=== PATIENT | female | born 1955 | race Caucasian/White ===

== ENCOUNTER → 2017-01-24 | Outpatient (CLI) | payer OTHER ==
--- NOTE | 2017-01-25 14:50 | MM ---
Reason for exam: screening (asymptomatic). Last mammogram was performed 5 months ago. History: Patient is postmenopausal. Benign excisional biopsy of the left breast, May 02, 1998. Reductions of both breasts, 1991. 2 core biopsies of the left breast. Excisional biopsy of the right breast. Took estrogen for 22 years beginning at age 34. Physical Findings: Nurse did not find any significant physical abnormalities on exam. MG 3D Screening Mammo W/Cad Bilateral CC and MLO view(s) were taken. XCCL view(s) were taken of the left breast. Prior study comparison: August 13, 2016, left breast MG 3d diag mammo w/cad LT. January 23, 2016, bilateral MG 3d screening mammo w/cad. There are scattered fibroglandular densities. Benign calcifications. There is chronic nodularity in the left breast, stable. No significant changes when compared with prior studies. ASSESSMENT: Benign, BI-RAD 2 RECOMMENDATION: Routine screening mammogram of both breasts in 1 year.
== END | disposition home or self-care (01) ==
LOC: RADMAMWWP 09:52
PROVIDERS: ATTEND Family Medicine
DX: Z12.31 Encounter for screening mammogram for malignant neoplasm of breast (principal)
CPT/HCPCS: 77063; G0202

== ENCOUNTER 2017-12-22 19:39 | Emergency (ER) | payer OTHER ==
[2017-12-22] MEDS ORDERED: PROPARACAINE 0.5% OPHTH DROPS 15 ML BTL RIGHT EYE STA (20:35)
[2017-12-22] MEDS ORDERED: TOBRAMYCIN 0.3% OPHTH DROPS 5 ML BTL RIGHT EYE STA (21:07)
--- NOTE | 2017-12-22 21:09 | ED ---
Eye Problem HPI - General Chief complaint: Eye Problems Stated complaint: eye pain Time Seen by Provider: 12/22/17 20:30 Source: patient, RN notes reviewed Mode of arrival: ambulatory Limitations: no limitations - History of Present Illness Initial comments: This a 62-year-old female presents emergency Department chief complaint of right eye irritation. Patient states it started a few hours ago after rubbing her eye. She felt that something into her eye and she states that she rubbed it. Patient states that she has no blurred vision. She states she feels a burning sensation to the lateral portion of her right eye. Patient states she does wear glasses and states that she has right straight regular. She's had no prior surgeries. Her tetanus is up-to-date. Patient denies any drainage. - Related Data Previous Rx's Medication Instructions Recorded Tobramycin [Tobrex 0.3% Ophth Soln] 1 drop RIGHT EYE Q4HR #5 ml 12/22/17 Allergies Allergy/AdvReac Type Severity Reaction Status Date / Time acetaminophen [From Percocet] Allergy Unknown Verified 12/22/17 19:55 codeine Allergy Unknown Verified 12/22/17 19:55 egg Allergy Unknown Verified 12/22/17 19:55 milk Allergy Unknown Verified 12/22/17 19:55 oxycodone [From Percocet] Allergy Unknown Verified 12/22/17 19:55 peanut Allergy Unknown Verified 12/22/17 19:55 soy Allergy Unknown Verified 12/22/17 19:55 Review of Systems ROS Statement: Those systems with pertinent positive or pertinent negative responses have been documented in the HPI. ROS Other: All systems not noted in ROS Statement are negative. Past Medical History Past Medical History: Hypertension, Renal Disease, Thyroid Disorder History of Any Multi-Drug Resistant Organisms: None Reported Past Surgical History: Hysterectomy, Joint Replacement, Orthopedic Surgery, Tonsillectomy Past Psychological History: No Psychological Hx Reported Smoking Status: Never smoker Past Alcohol Use History: Occasional Past Drug Use History: None Reported General Exam Limitations: no limitations General appearance: alert, in no apparent distress Head exam: Present: atraumatic, normocephalic, normal inspection Eye exam: Present: PERRL, EOMI, conjunctival injection (Mild right lateral), other (There is a small chemotic area noted in the 9 o'clock position on the eye , pressure of the right eye with Doc-Pen was 16). Absent: normal appearance, scleral icterus, periorbital swelling Pupils: Present: normal accommodation, other (Wood's lamp and diabetes evaluate the right eye there is a small area of uptake in this scleral there is no corneal abrasion patient did have some relief with proparacaine) ENT exam: Present: normal exam, normal oropharynx, mucous membranes moist, TM's normal bilaterally, normal external ear exam Neck exam: Present: normal inspection. Absent: tenderness, meningismus, lymphadenopathy Respiratory exam: Present: normal lung sounds bilaterally. Absent: respiratory distress, wheezes, rales, rhonchi, stridor Course Vital Signs 12/22/17 12/22/17 19:50 21:25 Temperature 98.7 F 97.8 F Pulse Rate 90 84 Respiratory 18 17 Rate Blood Pressure 134/70 170/82 O2 Sat by Pulse 99 98 Oximetry Medical Decision Making - Medical Decision Making 62-year-old female presents emergency department for right eye irritation. Patient has an abrasion to the sclera. Patient has slight chemotic area. There is no foreign body noted. Patient will be given Tobrex eyedrops this time. Visual acuity is equal. Patient will follow-up with podiatric medicine professor tomorrow return for any worsening symptoms. Disposition Clinical Impression: Chemosis of right conjunctiva, Conjunctival abrasion Disposition: HOME SELF-CARE Condition: Stable Instructions: Conjunctivitis (ED) Additional Instructions: Please return to the Emergency Department if symptoms worsen or any other concerns. Prescriptions: Tobramycin [Tobrex 0.3% Ophth Soln] 1 drop RIGHT EYE Q4HR #5 ml Referrals: Raúl Persaud DO [Primary Care Provider] - 1-2 days Liliane Hodgson MD [STAFF PHYSICIAN] - 1-2 days Time of Disposition: 21:08
[2017-12-22 21:26] VITALS: BP 170/82; PULSE 84; RESP 17; TEMP 97.8
== END 2017-12-22 21:34 | disposition home or self-care (01) ==
LOC: EC 19:39
DX: S05.01XA Injury of conjunctiva and corneal abrasion without foreign body, right eye, initial encounter (principal); H11.421 Conjunctival edema, right eye; Z88.5 Allergy status to narcotic agent; Z88.8 Allergy status to other drugs, medicaments and biological substances; Z91.010 Allergy to peanuts; Z91.011 Allergy to milk products; Z91.012 Allergy to eggs; Z91.018 Allergy to other foods; X58.XXXA Exposure to other specified factors, initial encounter
CPT/HCPCS: 99283

== ENCOUNTER → 2018-02-05 | Outpatient (CLI) | payer OTHER ==
--- NOTE | 2018-02-05 15:17 | MM ---
Reason for exam: screening (asymptomatic). Last mammogram was performed 1 year ago. History: Patient is postmenopausal. Benign excisional biopsy of the left breast, May 02, 1998. Reductions of both breasts, 1991. 2 core biopsies of the left breast. Excisional biopsy of the right breast. Took estrogen for 22 years beginning at age 34. Physical Findings: A clinical breast exam by your physician is recommended on an annual basis and results should be correlated with mammographic findings. MG 3D Screening Mammo W/Cad Bilateral CC and MLO view(s) were taken. Prior study comparison: January 24, 2017, bilateral MG 3d screening mammo w/cad. August 13, 2016, left breast MG 3d diag mammo w/cad LT. There are scattered fibroglandular densities. Stable benign calcifications. There is no discrete abnormality. No significant changes when compared with prior studies. ASSESSMENT: Benign, BI-RAD 2 RECOMMENDATION: Routine screening mammogram of both breasts in 1 year.
== END | disposition home or self-care (01) ==
LOC: RADMAMWWP 07:52
PROVIDERS: ATTEND Family Medicine
DX: Z12.31 Encounter for screening mammogram for malignant neoplasm of breast (principal)
CPT/HCPCS: 77063; 77067

== ENCOUNTER → 2019-03-25 | Outpatient (CLI) | payer OTHER ==
--- NOTE | 2019-03-27 14:48 | MM ---
Reason for exam: screening (asymptomatic). Last mammogram was performed 1 year and 2 months ago. History: Patient is postmenopausal. Benign excisional biopsy of the left breast, May 02, 1998. Reductions of both breasts, 1991. 2 core biopsies of the left breast. Excisional biopsy of the right breast. Took estrogen for 22 years beginning at age 34. Physical Findings: A clinical breast exam by your physician is recommended on an annual basis and results should be correlated with mammographic findings. MG 3D Screening Mammo W/Cad Bilateral CC and MLO view(s) were taken. Prior study comparison: February 05, 2018, bilateral MG 3d screening mammo w/cad. January 24, 2017, bilateral MG 3d screening mammo w/cad. No significant changes when compared with prior studies. ASSESSMENT: Benign, BI-RAD 2 RECOMMENDATION: Routine screening mammogram of both breasts in 1 year.
== END | disposition home or self-care (01) ==
LOC: RADMAMWWP 12:38
PROVIDERS: ATTEND Family Medicine
DX: Z12.31 Encounter for screening mammogram for malignant neoplasm of breast (principal)
CPT/HCPCS: 77063; 77067

== ENCOUNTER 2019-05-07 09:26 | Day surgery (SDC) | payer OTHER ==
[~2019-05-07 09:26] MED LIST: LACTATED RINGERS 1,000 ML IV SCH
[2019-05-07] MEDS ORDERED: LIDOCAINE 1% 20 ML VIAL (10MG/ML) FOR IV START INTRADERMA ONE (10:00)
[2019-05-07 10:11] VITALS: RESP 16; TEMP 97.5
[2019-05-07] MEDS ORDERED: LIDOCAINE 1% INJ 10MG/ML (20 ML MDV) ONE (10:42)
[2019-05-07] MEDS ORDERED: ETOMIDATE 2 MG/ML 10 ML VIAL ONE (10:42)
--- NOTE | 2019-05-07 10:57 | P.PCN ---
Date of Procedure: 05/07/19 Procedure(s) Performed: BRIEF HISTORY: Patient is a 63-year-old pleasant white female scheduled for an elective colonoscopy as a part of evaluation of prior history of colon polyps. Last colonoscopy was 5 years ago. PROCEDURE PERFORMED: Colonoscopy. PREOPERATIVE DIAGNOSIS: History of colon polyps. IV sedation per Anesthesia. PROCEDURE: After informed consent was obtained, the patient, was brought into the endoscopy unit. IV sedation was administered by Anesthesia under continuous monitoring. Digital rectal examination was normal. Initially the Olympus CF-160 flexible video colonoscope was then inserted in the rectum, gradually advanced into the cecum without any difficulty. Careful examination was performed as the scope was gradually being withdrawn. Ileocecal valve and the appendiceal orifice were visualized and appeared normal. Prep was excellent. Mucosa of the cecum, ascending colon, transverse colon, descending colon, sigmoid colon, and rectum appeared normal. Scattered sigmoid diverticulosis seen. Retroflexion was performed in the rectum and no lesions were seen. The patient tolerated the procedure well. IMPRESSION: Normal-appearing colon from rectum to cecum with no evidence of colorectal neoplasia Scattered sigmoidal diverticulosis. RECOMMENDATIONS: Findings of this examination were discussed with the patient as well as her family. She was advised to have a repeat surveillance colonoscopy in 5 years from now because of the prior history of colon polyps.
[2019-05-07 11:18] VITALS: BP 125/79; PULSE 65
== END 2019-05-07 11:32 | disposition home or self-care (01) ==
LOC: ORWHC2ENDO 09:26
PROVIDERS: ATTEND Internal Medicine Gastroenterology
DX: Z12.11 Encounter for screening for malignant neoplasm of colon (principal); Z86.010 Personal history of colon polyps; K57.30 Diverticulosis of large intestine without perforation or abscess without bleeding; E03.9 Hypothyroidism, unspecified; Z88.8 Allergy status to other drugs, medicaments and biological substances; I10 Essential (primary) hypertension; Z79.890 Hormone replacement therapy; Z79.899 Other long term (current) drug therapy
CPT/HCPCS: G0105; J2001

== ENCOUNTER 2019-11-20 12:59 | Emergency (ER) | payer OTHER ==
[2019-11-20 13:13] VITALS: TEMP 98.4
[2019-11-20 14:02] LABS: Basophils # (A) 0.1 k/uL (0-0.2); Basophils % (A) 1 %; Eosinophils # (A) 0.1 k/uL (0-0.7); Eosinophils % (A) 2 %; HCT 39.3 % (34.0-46.0); HGB 12.9 gm/dL (11.4-16.0); Lymphocytes # (A) 0.7 k/uL (1.0-4.8); Lymphocytes % (A) 15 %; MCH 28.9 pg (25.0-35.0); MCHC 32.9 g/dL (31.0-37.0); MCV 87.8 fL (80.0-100.0); Mean Platelet Volume 9.6; Monocytes # (A) 0.5 k/uL (0-1.0); Monocytes % (A) 10 %; Neutrophils # (A) 3.3 k/uL (1.3-7.7); Neutrophils % (A) 70 %; Platelet Count 193 k/uL (150-450); RBC 4.48 m/uL (3.80-5.40); RDW 12.7 % (11.5-15.5); WBC 4.7 k/uL (3.8-10.6)
[2019-11-20 14:13] LABS: INR 0.9 (<1.2); Partial Thromboplastin Time 24.2 sec (22.0-30.0); Prothrombin Time 9.6 sec (9.0-12.0)
--- NOTE | 2019-11-20 14:14 | ED ---
Neuro HPI - General Chief Complaint: Neuro Symptoms/Deficit Stated Complaint: poss TIA Source: patient Mode of arrival: ambulatory Limitations: no limitations - History of Present Illness Is the patient presenting with stroke symptoms?: Yes Initial Comments: The patient is a 64-year-old female with past medical history of hypertension presents emergency room with reported right arm and right leg weakness associated with right sided visual disturbance. Symptoms started last night around 7:00. She states that she saw bright flashes in her right eye. She ended up going to bed. When she woke this morning symptoms were still present therefore she went and saw her male impersonator. She had a full eye exam performed and they stated that everything was normal. They recommended that she go see her primary care doctor. She then went to urgent care and saw Dr. blanco this. They performed an EKG and found patient to our emergency room. She is currently admitting to right upper extremity paresthesias. Visual disturbance has resolved. She does admit to feeling mildly weak in the right upper extremity as well as the right lower extremity. Denies headache or neck pain. No speech difficulties or confusion. Denies any nausea or vomiting. No fevers or chills. Denies cough or hemoptysis. No chest pain or shortness breath. Denies history of CVA or TIA. There are no alleviating, precipitating or modifying factors - Related Data Home Medications: Home Medications Medication Instructions Recorded Confirmed Levothyroxine Sodium [Tirosint] 88 mcg PO QAM 05/05/19 05/07/19 Allergies/Adverse Reactions: Allergies Allergy/AdvReac Type Severity Reaction Status Date / Time acetaminophen [From Percocet] Allergy Nausea & Verified 11/20/19 13:13 Vomiting, HYPERTENSION codeine Allergy Hallucinati Verified 11/20/19 13:13 ons egg Allergy Anaphylaxis Verified 11/20/19 13:13 milk Allergy Dyspnea Verified 11/20/19 13:13 oxycodone [From Percocet] Allergy Nausea & Verified 11/20/19 13:13 Vomiting, HYPERTENSION peanut Allergy Rash/Hives Verified 11/20/19 13:13 soy Allergy Anaphylaxis Verified 11/20/19 13:13 Review of Systems ROS Statement: Those systems with pertinent positive or pertinent negative responses have been documented in the HPI. ROS Other: All systems not noted in ROS Statement are negative. General Exam Limitations: no limitations General appearance: alert, in no apparent distress Head exam: Present: atraumatic, normocephalic, normal inspection Eye exam: Present: normal appearance, PERRL, EOMI. Absent: scleral icterus, conjunctival injection, periorbital swelling ENT exam: Present: normal exam, mucous membranes moist Neck exam: Present: normal inspection. Absent: tenderness, meningismus, lymphadenopathy Respiratory exam: Present: normal lung sounds bilaterally. Absent: respiratory distress, wheezes, rales, rhonchi, stridor Cardiovascular Exam: Present: regular rate, normal rhythm, normal heart sounds. Absent: systolic murmur, diastolic murmur, rubs, gallop, clicks GI/Abdominal exam: Present: soft, normal bowel sounds. Absent: distended, tenderness, guarding, rebound, rigid Extremities exam: Present: normal inspection, full ROM, normal capillary refill. Absent: tenderness, pedal edema, joint swelling, calf tenderness Back exam: Present: normal inspection Neurological exam: Present: alert, oriented X3, CN II-XII intact, other (Finger to nose is symmetric bilaterally. The patient does have reported sensory deficit in the right upper right lower extremity, however it is still intact. NIH is 0. Face is symmetric, tongue is midline, speech is clear. Patient is ambulatory without ataxia) Psychiatric exam: Present: normal affect, normal mood Skin exam: Present: warm, dry, intact, normal color. Absent: rash Stroke MDM - Lab Data Result diagrams: 11/20/19 13:30 11/20/19 13:30 Lab Results 11/20/19 11/20/19 11/20/19 Range/Units 13:30 13:30 13:30 WBC 4.7 (3.8-10.6) k/uL RBC 4.48 (3.80-5.40) m/uL Hgb 12.9 (11.4-16.0) gm/dL Hct 39.3 (34.0-46.0) % MCV 87.8 (80.0-100.0) fL MCH 28.9 (25.0-35.0) pg MCHC 32.9 (31.0-37.0) g/dL RDW 12.7 (11.5-15.5) % Plt Count 193 (150-450) k/uL Neutrophils % 70 % Lymphocytes % 15 % Monocytes % 10 % Eosinophils % 2 % Basophils % 1 % Neutrophils # 3.3 (1.3-7.7) k/uL Lymphocytes # 0.7 L (1.0-4.8) k/uL Monocytes # 0.5 (0-1.0) k/uL Eosinophils # 0.1 (0-0.7) k/uL Basophils # 0.1 (0-0.2) k/uL PT 9.6 (9.0-12.0) sec INR 0.9 (<1.2) APTT 24.2 (22.0-30.0) sec Sodium 137 (137-145) mmol/L Potassium 4.7 (3.5-5.1) mmol/L Chloride 104 (98-107) mmol/L Carbon Dioxide 26 (22-30) mmol/L Anion Gap 7 mmol/L BUN 20 H (7-17) mg/dL Creatinine 1.12 H (0.52-1.04) mg/dL Est GFR (CKD-EPI)AfAm 60 (>60 ml/min/1.73 sqM) Est GFR (CKD-EPI)NonAf 52 (>60 ml/min/1.73 sqM) Glucose 92 (74-99) mg/dL Calcium 9.4 (8.4-10.2) mg/dL Total Bilirubin 0.6 (0.2-1.3) mg/dL AST 31 (14-36) U/L ALT 15 (4-34) U/L Alkaline Phosphatase 98 (38-126) U/L Troponin I (0.000-0.034) ng/mL Total Protein 7.1 (6.3-8.2) g/dL Albumin 4.3 (3.5-5.0) g/dL Urine Color Urine Appearance (Clear) Urine pH (5.0-8.0) Ur Specific [place] (1.001-1.035) Urine Protein (Negative) Urine Glucose (UA) (Negative) Urine Ketones (Negative) Urine Blood (Negative) Urine Nitrite (Negative) Urine Bilirubin (Negative) Urine Urobilinogen (<2.0) mg/dL Ur Leukocyte Esterase (Negative) 11/20/19 11/20/19 Range/Units 13:30 14:46 WBC (3.8-10.6) k/uL RBC (3.80-5.40) m/uL Hgb (11.4-16.0) gm/dL Hct (34.0-46.0) % MCV (80.0-100.0) fL MCH (25.0-35.0) pg MCHC (31.0-37.0) g/dL RDW (11.5-15.5) % Plt Count (150-450) k/uL Neutrophils % % Lymphocytes % % Monocytes % % Eosinophils % % Basophils % % Neutrophils # (1.3-7.7) k/uL Lymphocytes # (1.0-4.8) k/uL Monocytes # (0-1.0) k/uL Eosinophils # (0-0.7) k/uL Basophils # (0-0.2) k/uL PT (9.0-12.0) sec INR (<1.2) APTT (22.0-30.0) sec Sodium (137-145) mmol/L Potassium (3.5-5.1) mmol/L Chloride (98-107) mmol/L Carbon Dioxide (22-30) mmol/L Anion Gap mmol/L BUN (7-17) mg/dL Creatinine (0.52-1.04) mg/dL Est GFR (CKD-EPI)AfAm (>60 ml/min/1.73 sqM) Est GFR (CKD-EPI)NonAf (>60 ml/min/1.73 sqM) Glucose (74-99) mg/dL Calcium (8.4-10.2) mg/dL Total Bilirubin (0.2-1.3) mg/dL AST (14-36) U/L ALT (4-34) U/L Alkaline Phosphatase (38-126) U/L Troponin I <0.012 (0.000-0.034) ng/mL Total Protein (6.3-8.2) g/dL Albumin (3.5-5.0) g/dL Urine Color Light Yellow Urine Appearance Clear (Clear) Urine pH 7.0 (5.0-8.0) Ur Specific [place] 1.007 (1.001-1.035) Urine Protein Negative (Negative) Urine Glucose (UA) Negative (Negative) Urine Ketones Negative (Negative) Urine Blood Negative (Negative) Urine Nitrite Negative (Negative) Urine Bilirubin Negative (Negative) Urine Urobilinogen <2.0 (<2.0) mg/dL Ur Leukocyte Esterase Negative (Negative) - Medical Decision Making Upon arrival the patient was placed in room 6. A thorough history and physical exam was performed. NIH stroke scale is performed and the patient has a score of 0. Laboratory studies were conducted and the patient was sent for a CT of her brain. I do receive results of the laboratory studies before the exam is performed. Kidney function is normal therefore I do that on a CT angios the head. Patient was given a liter bolus of normal saline. Laboratory studies are reviewed and are unremarkable. Urinalysis is negative. CT of the brain and CT angiography of the brain demonstrates no flow limiting stenosis of the bilateral carotid bifurcations. Normal [place] of [place]. I discussed results with the patient. NIH is performed again and continues to be negative. I discussed results with the patient. I did recommend hospital admission for neurology evaluation. Neurology is not available at her facility and therefore did primitivo mmend transfer with neurology capabilities. The patient did agree to [facility]. I discussed the case with Dr. López, the neurologist, who accepted transfer. I then talked to the ED and the accepting ED doctor is Dr. Brown. Patient remained in stable condition awaiting transfer 11/20/19 14:14 EKG demonstrates a normal sinus rhythm with a ventricular rate of 67. OK interval 104. QRS 84. QTC of 390. No acute ST segment elevations or depressions concerning for ischemic changes Past Medical History Past Medical History: Hypertension, Renal Disease, Thyroid Disorder History of Any Multi-Drug Resistant Organisms: None Reported Past Surgical History: Hysterectomy, Orthopedic Surgery, Tonsillectomy Additional Past Surgical History / Comment(s): RIGHT KNEE TOTAL. ROTATOR CUFF (BILATERAL). Past Anesthesia/Blood Transfusion Reactions: Previous Problems w/ Anesthesia Additional Past Anesthesia/Blood Transfusion Reaction / Comment(s): SEVERE ALLERGIES. CAN'T TAKE MEDS WITH EGG BASE (HAS HAD REACTION PREVIOUS SURGERIES. PATIENT STATES SHE CAN TAKE VERSED. Past Psychological History: ADD/ADHD Smoking Status: Never smoker Past Alcohol Use History: Occasional Past Drug Use History: None Reported Course Vital Signs 11/20/19 11/20/19 11/20/19 13:10 13:28 13:33 Temperature 98.4 F Pulse Rate 80 78 69 Respiratory 20 18 16 Rate Blood Pressure 157/81 120/81 123/43 O2 Sat by Pulse 100 99 100 Oximetry Disposition Clinical Impression: Paresthesia Disposition: OTHER INSTITUTION NOT DEFINED Condition: Stable Is patient prescribed a controlled substance at d/c from ED?: No Referrals: Raúl Persaud DO [Primary Care Provider] - 1-2 days Decision Time: 17:23 - Out of Hospital Transfer - Req. Specs Out of Hospital Transfer - Requested Specifics: Other Emergency Center ([facility])
[2019-11-20 14:17] LABS: Albumin 4.3 g/dL (3.5-5.0); Calcium 9.4 mg/dL (8.4-10.2); Potassium 4.7 mmol/L (3.5-5.1); Total Bilirubin 0.6 mg/dL (0.2-1.3); Total Protein 7.1 g/dL (6.3-8.2)
[2019-11-20] MEDS ORDERED: SODIUM CHLORIDE 0.9% 1,000 ML IV ONE (14:22)
--- NOTE | 2019-11-20 14:30 | XR ---
EXAMINATION TYPE: XR chest 2V DATE OF EXAM: 11/20/2019 COMPARISON: 01/03/1911 HISTORY: Altered mental status TECHNIQUE: Frontal and lateral views of the chest are obtained. FINDINGS: There is no focal air space opacity, pleural effusion, or pneumothorax seen. The cardiac silhouette size is within normal limits. The osseous structures are intact. IMPRESSION: No acute cardiopulmonary process.
--- NOTE | 2019-11-20 14:57 | CT ---
EXAMINATION TYPE: CT brain wo con DATE OF EXAM: 11/20/2019 COMPARISON: None INDICATION: Neuro deficit acute stroke right arm numbness and right eye visual disturbance DLP: 1073.8 mGycm, Automated exposure control for dose reduction was used. CONTRAST: None CT of the brain is performed utilizing 3 mm thick sections through the posterior fossa and 3 mm thick sections through the remaining calvarium. Study is performed within 24 hours of arrival to the hosp ital. No abnormal hyperdensity is present to suggest an acute intracranial hemorrhage. No mass lesion is evident. No acute infarcts are evident. Ventricles and sulci are appropriate for the patient age. Paranasal sinuses and mastoid air cells within the [id number]-[id number] are clear. IMPRESSIONS: 1. Normal CT Brain
[2019-11-20 15:08] LABS: Appearance,Urine Clear (Clear); Bilirubin,Urine Negative (Negative); Blood,Urine Negative (Negative); Color,Urine Light Yellow; Glucose,Urine (UA) Negative (Negative); Ketones,Urine Negative (Negative); Leukocyte Esterase,Urine Negative (Negative); Nitrite,Urine Negative (Negative); Protein,Urine Negative (Negative); Specific Gravity,Urine 1.007 (1.001-1.035); Urobilinogen,Urine <2.0 mg/dL (<2.0)
--- NOTE | 2019-11-20 15:47 | CT ---
EXAMINATION TYPE: CT angio head neck DATE OF EXAM: 11/20/2019 HISTORY: Right arm numbness and right eye visual disturbance. COMPARISON: None CT DLP: 419.7 mGycm. Automated Exposure Control for Dose Reduction was Utilized. TECHNIQUE: CTA scan of the neck is performed with IV Contrast, patient injected with 65 mL of Isovue 370, axial images are obtained, coronal and sagittal reformatted images are reviewed. Three-D recons tructed images are created on an independent workstation and reviewed. Source images are reviewed. FINDINGS: Carotid/Vascular Structures: There is a three-vessel arch. Carotid bifurcations are normal without si gnificant stenosis. Vertebral arteries are codominant. Cervical of [place]: Vertebral basilar system appears normal. Posterior cerebral vasculature is unrema rkable. Internal carotid arteries bifurcate normally into A1 and M1 segments. A2 segments are normal. The anterior communicating artery is patent. Communicating arteries appear absent. Other: Soft tissue neck appears normal. Subglottic airway is normal. Portion of the thyroid visualize d is normal. Lung apices within the [id number]-[id number]-sint are clear. IMPRESSION: 1. No flow-limiting stenosis bilateral carotid bifurcations. 2. Normal [place] of [place]
[2019-11-20 18:32] VITALS: RESP 18
[2019-11-20 18:34] VITALS: BP 123/74; PULSE 18
== END 2019-11-20 19:25 | disposition short-term general hospital (02) ==
LOC: EC 12:59
DX: R20.2 Paresthesia of skin (principal); G81.91 Hemiplegia, unspecified affecting right dominant side; E07.9 Disorder of thyroid, unspecified; Z88.5 Allergy status to narcotic agent; Z88.6 Allergy status to analgesic agent; Z91.010 Allergy to peanuts; Z91.011 Allergy to milk products; Z91.012 Allergy to eggs; Z91.018 Allergy to other foods; Z79.890 Hormone replacement therapy; Z96.651 Presence of right artificial knee joint; Z98.890 Other specified postprocedural states
CPT/HCPCS: 99285; 96360; 96361 ×3; 36415; 93005; 80053; 84484; 85025; 85610; 85730; 81003; 71046; 70496; 70450; 70498; Q9967

== ENCOUNTER → 2020-03-31 | Outpatient (CLI) | payer OTHER ==
--- NOTE | 2020-04-01 10:19 | MM ---
Reason for exam: screening (asymptomatic). Last mammogram was performed 1 year ago. History: Patient is postmenopausal. Benign excisional biopsy of the left breast, May 02, 1998. Reductions of both breasts, 1991. 2 core biopsies of the left breast. Excisional biopsy of the right breast. Took estrogen for 22 years beginning at age 34. Physical Findings: A clinical breast exam by your physician is recommended on an annual basis and results should be correlated with mammographic findings. MG 3D Screening Mammo W/Cad Bilateral CC and MLO view(s) were taken. Prior study comparison: March 25, 2019, bilateral MG 3d screening mammo w/cad. February 05, 2018, bilateral MG 3d screening mammo w/cad. There are scattered fibroglandular densities. Stable benign calcifications. There is no discrete abnormality. No significant changes when compared with prior studies. ASSESSMENT: Benign, BI-RAD 2 RECOMMENDATION: Routine screening mammogram of both breasts in 1 year.
== END | disposition home or self-care (01) ==
LOC: RADMAMWWP 09:16
PROVIDERS: ATTEND Family Medicine
DX: Z12.31 Encounter for screening mammogram for malignant neoplasm of breast (principal)
CPT/HCPCS: 77063; 77067

== ENCOUNTER → 2021-04-03 | Outpatient (CLI) | payer MEDICARE ==
--- NOTE | 2021-04-03 15:00 | BD ---
EXAMINATION TYPE: Axial Bone Density DATE OF EXAM: 04/03/2021 COMPARISON: 01.23.2016 CLINICAL HISTORY: 65 YR OLD FEMALE.....ICD-10 CODE: M85.80 DISORDER OF BONE DENSITY Height: 62.4 Weight: 156 FRAX RISK QUESTIONS: History of Fracture in Adulthood: YES Secondary Osteoporosis: YES 3. Menopause before 45: YES RISK FACTORS HISTORY OF: Hip Fracture HAIR LINE FX RT HIP, AT AGE 44 YRS Diet low in dairy products/other sources of calcium: MILK ALLERGY Postmenopausal woman: YES, AT AGE 34 YRS OLD TOTAL HYST Take estrogen and/or progesterone medications: YES, AND STILL ON THEM FOR 31 YRS Hyperparathyroidism: NO Adrenal Insufficiency: NO MEDICATIONS: Thyroid Medications: YES, SYNTHROID, FOR ABOUT 40 YRS Additional Medications: BP MEDS, REFLUX MEDS, Additional History: RT TKR, HYPERTENSION, REFLUX, HX OF RT HIP FX, KIDNEY FAILURE, RENAL PROBLEMS, EXAM MEASUREMENTS: Bone mineral densitometry was performed using the [employer] System. Bone mineral density as measured about the Lumbar spine is: ----- L1-L4(G/cm2): 1.011 T Score Values are as follows: ----- L1: -2.2 ----- L2: -1.9 ----- L3: -1.9 ----- L4: -0.1 ----- L1-L4: -1.4 Bone mineral density has: Increased 2.5% since study of: 01.23.2016 Bone mineral density about the L hip (g/cm2): 0.898 T Score values are as follows: -----L Neck: -1.3 -----L Total: -0.9 Bone mineral density has: Decreased -4.7% since study of: 01.23.2016 FRAX%s: THERE IS A 7.5% CHANCE FOR A MAJOR OSTEOPOROTIC FX AND A 0.7% FOR HIP.....PROBABILITY FOR FX IN 10 YRS TIME IMPRESSION: Osteopenia NOTE: T-SCORE=SD OF THE YOUNG ADULT MEAN.
--- NOTE | 2021-04-05 08:13 | MM ---
Reason for exam: screening (asymptomatic). Last mammogram was performed 1 year ago. History: Patient is postmenopausal. Benign excisional biopsy of the left breast, May 02, 1998. Reductions of both breasts, 1991. 2 core biopsies of the left breast. Excisional biopsy of the right breast. Took estrogen for 22 years beginning at age 34. Physical Findings: A clinical breast exam by your physician is recommended on an annual basis and results should be correlated with mammographic findings. MG 3D Screening Mammo W/Cad Bilateral CC and MLO view(s) were taken. Prior study comparison: March 31, 2020, bilateral MG 3d screening mammo w/cad. March 25, 2019, bilateral MG 3d screening mammo w/cad. There are scattered fibroglandular densities. No significant changes when compared with prior studies. ASSESSMENT: Benign, BI-RAD 2 RECOMMENDATION: Routine screening mammogram of both breasts in 1 year.
== END | disposition home or self-care (01) ==
LOC: RADMAMWWP 09:47
PROVIDERS: ATTEND Family Medicine
DX: Z12.31 Encounter for screening mammogram for malignant neoplasm of breast (principal); Z78.0 Asymptomatic menopausal state; M85.80 Other specified disorders of bone density and structure, unspecified site
CPT/HCPCS: 77063; 77067; 77080

== ENCOUNTER → 2021-12-25 | Outpatient (CLI) | payer MEDICARE ==
[2021-12-25 13:06] LABS: Basophils # (A) 0.1 k/uL (0-0.2); Basophils % (A) 1 %; Eosinophils # (A) 0.1 k/uL (0-0.7); Eosinophils % (A) 1 %; HCT 42.8 % (34.0-46.0); HGB 13.5 gm/dL (11.4-16.0); Lymphocytes % (A) 12 %; MCH 29.1 pg (25.0-35.0); MCHC 31.6 g/dL (31.0-37.0); MCV 92.1 fL (80.0-100.0); Mean Platelet Volume 9.1; Monocytes # (A) 0.5 k/uL (0-1.0); Monocytes % (A) 6 %; Neutrophils # (A) 6.7 k/uL (1.3-7.7); Neutrophils % (A) 78 %; Platelet Count 211 k/uL (150-450); RBC 4.65 m/uL (3.80-5.40); RDW 12.6 % (11.5-15.5); WBC 8.5 k/uL (3.8-10.6)
[2021-12-25 13:21] LABS: ALT 17 U/L (4-34); AST 31 U/L (14-36); African American GFR (CKD) 59 (>60 ml/min/1.73 sqM); Albumin 4.3 g/dL (3.5-5.0); Albumin/Globulin Ratio 1.3; Alkaline Phosphatase 81 U/L (38-126); Anion Gap 9 mmol/L; Blood Urea Nitrogen 18 mg/dL (7-17); Calcium 9.5 mg/dL (8.4-10.2); Carbon Dioxide 25 mmol/L (22-30); Chloride 103 mmol/L (98-107); Globulin 3.3 g/dL; Glucose 97 mg/dL (74-99); Non-African American GFR(CKD) 51 (>60 ml/min/1.73 sqM); Potassium 4.7 mmol/L (3.5-5.1); Sodium 137 mmol/L (137-145); Total Protein 7.6 g/dL (6.3-8.2)
--- NOTE | 2021-12-25 15:27 | CT ---
EXAMINATION TYPE: CT abdomen pelvis w con DATE OF EXAM: 12/25/2021 COMPARISON: No previous CT scan is available for comparison HISTORY: LLQ pain CT DLP: 731.60 mGycm Automated exposure control for dose reduction was used. TECHNIQUE: Helical acquisition of images was performed from the lung bases through the pelvis. CONTRAST: Performed with Oral Contrast and with IV Contrast, patient injected with 80 ml mL of Isovue 300. FINDINGS: LUNG BASES: No significant abnormality is appreciated. LIVER/GB: No significant abnormality is appreciated. PANCREAS: No significant abnormality is seen. SPLEEN: No significant abnormality is seen. ADRENALS: No significant abnormality is seen. KIDNEYS: Right extrarenal pelvis with left parapelvic renal cysts. Unremarkable kidneys otherwise. No hydroureter or hydronephrosis. FREE AIR: No free air is visualized. RETROPERITONEAL ADENOPATHY: None visualized REPRODUCTIVE ORGANS: Previous hysterectomy. No gross adnexal mass. URINARY BLADDER: No significant abnormality is seen. PELVIC ADENOPATHY: None visualized. OSSEOUS STRUCTURES: Grade 1 anterolisthesis of L4 over L5. No aggressive bone lesion. BOWEL: Unremarkable stomach. Small duodenal diverticulum. Unremarkable small bowel. Colonic divertic ulosis with acute diverticulitis involving the junction of the descending colon and the sigmoid colon . No definite abscess formation or signs of perforation. Fecal loading of the remainder of the colon. Nonspecific wall thickening the proximal portion of the transverse colon, please correlate with colo noscopy results. Normal appendix. OTHER: Unremarkable abdominal aorta. No sizable ascites. IMPRESSION: Acute diverticulitis of the proximal sigmoid colon/distal descending colon as described above. No sig ns of perforation or abscess formation. Other incidental findings as detailed above.
== END | disposition home or self-care (01) ==
LOC: RADCTMAIN 12:38
PROVIDERS: ATTEND Physician Assistant
DX: K57.32 Diverticulitis of large intestine without perforation or abscess without bleeding (principal)
CPT/HCPCS: 80053; 85025; 74177; 36415; Q9967

== ENCOUNTER 2022-03-02 19:15 | Emergency (ER) | payer MEDICARE ==
[2022-03-02 19:20] VITALS: RESP 18; TEMP 97.1
[2022-03-02] MEDS ORDERED: MORPHINE SULFATE 2 MG/ML SYRINGE IVP STA (20:08)
[2022-03-02] MEDS ORDERED: ONDANSETRON 4 MG/2 ML VIAL IVP STA (20:08)
[2022-03-02] MEDS ORDERED: SODIUM CHLORIDE 0.9% 1,000 ML IV STA (20:08)
--- NOTE | 2022-03-02 20:48 | ED ---
Abdominal Pain HPI - General Chief Complaint: Abdominal Pain Stated Complaint: abd pain Time Seen by Provider: 03/02/22 20:02 Source: patient Mode of arrival: ambulatory Limitations: no limitations - History of Present Illness Initial Comments: Patient is a 66-year-old female presenting with chief complaint of abdominal pain. Patient states pain is mainly located in the lower quadrants. Is accompanied by diarrhea and nausea. Patient states that she was diagnosed with colitis in December and treated with antibiotics, she has had this pain on and off again, however today the pain has increased substantially. She took Tylenol at home with no relief. She admits to hematochezia the last 2 weeks. She denies any vomiting. Denies chest pain, shortness of breath, palpitations, weakness. Admits to some dysuria and chills without fever. Denies hematuria, urgency, frequency. - Related Data Home Medications Medication Instructions Recorded Confirmed Levothyroxine Sodium [Tirosint] 88 mcg PO QAM 05/05/19 05/07/19 Previous Rx's Medication Instructions Recorded Ciprofloxacin HCl [Cipro] 500 mg PO BID 10 Days #20 tab 03/02/22 metroNIDAZOLE [Flagyl] 500 mg PO TID 10 Days #30 tab 03/02/22 Allergies Allergy/AdvReac Type Severity Reaction Status Date / Time acetaminophen [From Percocet] Allergy Nausea & Verified 03/02/22 19:20 Vomiting, HYPERTENSION codeine Allergy Hallucinati Verified 03/02/22 19:20 ons egg Allergy Anaphylaxis Verified 03/02/22 19:20 milk Allergy Dyspnea Verified 03/02/22 19:20 oxycodone [From Percocet] Allergy Nausea & Verified 03/02/22 19:20 Vomiting, HYPERTENSION peanut Allergy Rash/Hives Verified 03/02/22 19:20 soy Allergy Anaphylaxis Verified 03/02/22 19:20 Review of Systems ROS Statement: Those systems with pertinent positive or pertinent negative responses have been documented in the HPI. ROS Other: All systems not noted in ROS Statement are negative. Past Medical History Past Medical History: Hypertension, Renal Disease, Thyroid Disorder Additional Past Medical History / Comment(s): diverticulitis History of Any Multi-Drug Resistant Organisms: None Reported Past Surgical History: Hysterectomy, Orthopedic Surgery, Tonsillectomy Additional Past Surgical History / Comment(s): RIGHT KNEE TOTAL. ROTATOR CUFF (BILATERAL). Past Anesthesia/Blood Transfusion Reactions: Previous Problems w/ Anesthesia Additional Past Anesthesia/Blood Transfusion Reaction / Comment(s): SEVERE ALLER GIES. CAN'T TAKE MEDS WITH EGG BASE (HAS HAD REACTION PREVIOUS SURGERIES. PATIENT STATES SHE CAN TAKE VERSED. Past Psychological History: ADD/ADHD Smoking Status: Never smoker Past Alcohol Use History: Occasional Past Drug Use History: None Reported General Exam Limitations: no limitations General appearance: alert, in no apparent distress Head exam: Present: atraumatic, normocephalic, normal inspection Eye exam: Present: normal appearance, EOMI. Absent: scleral icterus Neck exam: Present: normal inspection Respiratory exam: Present: normal lung sounds bilaterally. Absent: respiratory distress, wheezes, rales, rhonchi, stridor Cardiovascular Exam: Present: regular rate, normal rhythm, normal heart sounds. Absent: systolic murmur, diastolic murmur, rubs, gallop, clicks GI/Abdominal exam: Present: soft, normal bowel sounds. Absent: distended, tenderness, guarding, rebound, rigid Neurological exam: Present: alert, oriented X3, CN II-XII intact Psychiatric exam: Present: normal affect, normal mood Skin exam: Present: warm, dry, intact, normal color. Absent: rash Course Vital Signs 03/02/22 03/02/22 19:17 20:55 Temperature 97.1 F L Pulse Rate 77 63 Respiratory 18 18 Rate Blood Pressure 133/79 114/63 O2 Sat by Pulse 97 99 Oximetry Medical Decision Making - Medical Decision Making Patient is a 66-year-old female presenting with chief complaint of abdominal pain. This is accompanied by nausea, hematochezia, diarrhea. She has a history of colitis. On examination there is bilateral lower quadrant tenderness. There are hyperactive bowel sounds. Lab work shows no leukocytosis and hemoglobin is WNL. Creatinine and BUN has increased from her baseline values. Urine shows no signs of infection. CT shows persistent inflammation changes around the sigmoid colon which could be new episode of colitis or residual inflammation from initial episode. I discussed these findings with the patient. Through shared decision making I provided the patient with the options of receiving inpatient treatment or utilizing outpatient treatment with follow-up on Saturday for elevated creatinine and BUN. Patient opted for outpatient treatment with follow-up with her PCP. Patient treated with ciprofloxacin and metronidazole. She was given her first dose here in the ER. Instructed to follow-up with PCP on Saturday for symptomatic reassessment and creatinine and BUN rechecked. Report back to ER with any new or worsening symptoms. Answered all questions and discussed return parameters. Patient conveyed verbal understanding and agreed to the plan. I discussed this case with my attending Dr. Beaver - Lab Data Result diagrams: 03/02/22 20:47 03/02/22 20:47 Lab Results 03/02/22 03/02/22 03/02/22 Range/Units 20:47 20:47 20:47 WBC 8.3 (3.8-10.6) k/uL RBC 4.62 (3.80-5.40) m/uL Hgb 14.1 (11.4-16.0) gm/dL Hct 41.9 (34.0-46.0) % MCV 90.7 (80.0-100.0) fL MCH 30.5 (25.0-35.0) pg MCHC 33.7 (31.0-37.0) g/dL RDW 12.7 (11.5-15.5) % Plt Count 227 (150-450) k/uL MPV 9.4 Neutrophils % 80 % Lymphocytes % 9 % Monocytes % 6 % Eosinophils % 1 % Basophils % 1 % Neutrophils # 6.7 (1.3-7.7) k/uL Lymphocytes # 0.8 L (1.0-4.8) k/uL Monocytes # 0.5 (0-1.0) k/uL Eosinophils # 0.1 (0-0.7) k/uL Basophils # 0.1 (0-0.2) k/uL PT 10.0 (9.0-12.0) sec INR 0.9 (<1.2) APTT 23.8 (22.0-30.0) sec Sodium 133 L (137-145) mmol/L Potassium 5.0 (3.5-5.1) mmol/L Chloride 101 (98-107) mmol/L Carbon Dioxide 24 (22-30) mmol/L Anion Gap 8 mmol/L BUN 35 H (7-17) mg/dL Creatinine 1.85 H (0.52-1.04) mg/dL Est GFR (CKD-EPI)AfAm 32 (>60 ml/min/1.73 sqM) Est GFR (CKD-EPI)NonAf 28 (>60 ml/min/1.73 sqM) Glucose 106 H (74-99) mg/dL Plasma Lactic Acid Tarun (0.7-2.0) mmol/L Calcium 9.9 (8.4-10.2) mg/dL Total Bilirubin 1.0 (0.2-1.3) mg/dL AST 36 (14-36) U/L ALT 17 (4-34) U/L Alkaline Phosphatase 72 (38-126) U/L Total Protein 7.5 (6.3-8.2) g/dL Albumin 4.6 (3.5-5.0) g/dL Amylase 98 (30-110) U/L Lipase 191 (23-300) U/L Urine Color Urine Appearance (Clear) Urine pH (5.0-8.0) Ur Specific [place] (1.001-1.035) Urine Protein (Negative) Urine Glucose (UA) (Negative) Urine Ketones (Negative) Urine Blood (Negative) Urine Nitrite (Negative) Urine Bilirubin (Negative) Urine Urobilinogen (<2.0) mg/dL Ur Leukocyte Esterase (Negative) Urine WBC (0-5) /hpf Ur Squamous Epith Cells (0-4) /hpf Amorphous Sediment (None) /hpf Hyaline Casts (0-2) /lpf Urine Mucus (None) /hpf 03/02/22 03/02/22 Range/Units 20:47 21:20 WBC (3.8-10.6) k/uL RBC (3.80-5.40) m/uL Hgb (11.4-16.0) gm/dL Hct (34.0-46.0) % MCV (80.0-100.0) fL MCH (25.0-35.0) pg MCHC (31.0-37.0) g/dL RDW (11.5-15.5) % Plt Count (150-450) k/uL MPV Neutrophils % % Lymphocytes % % Monocytes % % Eosinophils % % Basophils % % Neutrophils # (1.3-7.7) k/uL Lymphocytes # (1.0-4.8) k/uL Monocytes # (0-1.0) k/uL Eosinophils # (0-0.7) k/uL Basophils # (0-0.2) k/uL PT (9.0-12.0) sec INR (<1.2) APTT (22.0-30.0) sec Sodium (137-145) mmol/L Potassium (3.5-5.1) mmol/L Chloride (98-107) mmol/L Carbon Dioxide (22-30) mmol/L Anion Gap mmol/L BUN (7-17) mg/dL Creatinine (0.52-1.04) mg/dL Est GFR (CKD-EPI)AfAm (>60 ml/min/1.73 sqM) Est GFR (CKD-EPI)NonAf (>60 ml/min/1.73 sqM) Glucose (74-99) mg/dL Plasma Lactic Acid Tarun 0.9 (0.7-2.0) mmol/L Calcium (8.4-10.2) mg/dL Total Bilirubin (0.2-1.3) mg/dL AST (14-36) U/L ALT (4-34) U/L Alkaline Phosphatase (38-126) U/L Total Protein (6.3-8.2) g/dL Albumin (3.5-5.0) g/dL Amylase (30-110) U/L Lipase (23-300) U/L Urine Color Yellow Urine Appearance Clear (Clear) Urine pH 5.5 (5.0-8.0) Ur Specific [place] 1.021 (1.001-1.035) Urine Protein Trace H (Negative) Urine Glucose (UA) Negative (Negative) Urine Ketones Negative (Negative) Urine Blood Negative (Negative) Urine Nitrite Negative (Negative) Urine Bilirubin Negative (Negative) Urine Urobilinogen <2.0 (<2.0) mg/dL Ur Leukocyte Esterase Small H (Negative) Urine WBC 5 (0-5) /hpf Ur Squamous Epith Cells 2 (0-4) /hpf Amorphous Sediment Rare H (None) /hpf Hyaline Casts 38 H (0-2) /lpf Urine Mucus Occasional H (None) /hpf Disposition Clinical Impression: Colitis Disposition: HOME SELF-CARE Condition: Good Instructions (If sedation given, give patient instructions): Colitis (ED) Additional Instructions: Follow-up with PCP on Saturday for symptom reevaluation and creatinine and BUN recheck. Report back to ER with any new or worsening symptoms. Prescriptions: Ciprofloxacin HCl [Cipro] 500 mg PO BID 10 Days #20 tab metroNIDAZOLE [Flagyl] 500 mg PO TID 10 Days #30 tab Is patient prescribed a controlled substance at d/c from ED?: No Referrals: Raúl Persaud DO [Primary Care Provider] - 03/05/22 Time of Disposition: 23:19
[2022-03-02 20:50] LABS: Basophils # (A) 0.1 k/uL (0-0.2); Basophils % (A) 1 %; Eosinophils # (A) 0.1 k/uL (0-0.7); Eosinophils % (A) 1 %; HCT 41.9 % (34.0-46.0); HGB 14.1 gm/dL (11.4-16.0); Lymphocytes # (A) 0.8 k/uL (1.0-4.8); Lymphocytes % (A) 9 %; MCH 30.5 pg (25.0-35.0); MCHC 33.7 g/dL (31.0-37.0); MCV 90.7 fL (80.0-100.0); Mean Platelet Volume 9.4; Monocytes # (A) 0.5 k/uL (0-1.0); Monocytes % (A) 6 %; Neutrophils # (A) 6.7 k/uL (1.3-7.7); Neutrophils % (A) 80 %; Platelet Count 227 k/uL (150-450); RBC 4.62 m/uL (3.80-5.40); RDW 12.7 % (11.5-15.5); WBC 8.3 k/uL (3.8-10.6)
[2022-03-02 20:59] LABS: INR 0.9 (<1.2); Partial Thromboplastin Time 23.8 sec (22.0-30.0)
[2022-03-02 21:00] LABS: Albumin 4.6 g/dL (3.5-5.0); Calcium 9.9 mg/dL (8.4-10.2); Total Protein 7.5 g/dL (6.3-8.2)
[2022-03-02 21:25] LABS: Amorphous Sediment,Urine Rare /hpf; Appearance,Urine Clear (Clear); Bilirubin,Urine Negative (Negative); Blood,Urine Negative (Negative); Color,Urine Yellow; Glucose,Urine (UA) Negative (Negative); Hyaline Casts,Urine 38 /lpf (0-2); Ketones,Urine Negative (Negative); Leukocyte Esterase,Urine Small (Negative); Mucus,Urine Occasional /hpf; Nitrite,Urine Negative (Negative); PH, Urine 5.5 (5.0-8.0); Protein,Urine Trace (Negative); Specific Gravity,Urine 1.021 (1.001-1.035); Squamous Epithelial Cell,Urine 2 /hpf (0-4); Urobilinogen,Urine <2.0 mg/dL (<2.0); WBC,Urine 5 /hpf (0-5)
--- NOTE | 2022-03-02 21:46 | CT ---
EXAMINATION TYPE: CT abdomen pelvis wo con CT DLP: 498.3 mGycm, Automated exposure control for dose reduction was used. DATE OF EXAM: 03/02/2022 9:23 PM COMPARISON: CT abdomen pelvis 12/25/2021 CLINICAL INDICATION:Female, 66 years old with history of Abdominal pain, right lower quadrant; Lower pelvic pain, right lower quadrant pain TECHNIQUE: Standard CT of the abdomen and pelvis following the administration of 100 cc of Isovue 3 00 IV contrast material. Coronal and sagittal reformats were performed. FINDINGS: LOWER CHEST: Unremarkable ABDOMEN LIVER: Unremarkable GALLBLADDER AND BILE DUCTS: Unremarkable. PANCREAS: Unremarkable. SPLEEN: Small splenule is present. ADRENAL GLANDS: Unremarkable. KIDNEYS AND URETERS: No evidence of hydronephrosis or renal calculus. The ureters are unremarkable. U nchanged left peripelvic cyst. PELVIS BLADDER: Unremarkable REPRODUCTIVE: Unremarkable. ABDOMEN & PELVIS STOMACH AND BOWEL: Appendix is normal. Mild inflammation changes around the sigmoid colon remain in t flora's exam. No evidence of bowel obstruction. PERITONEUM: No evidence of pneumoperitoneum or free fluid. VASCULATURE: No evidence of aortic aneurysm. MUSCULOSKELETAL: No acute osseous abnormalities.Grade 1 anterolisthesis of L4 over L5. No aggressive bone lesion. Multiple level disc bulging most pronounced in the lumbar spine. LYMPH NODES: No gross evidence for lymphadenopathy. SOFT TISSUE/ABDOMINAL WALL: Unremarkable IMPRESSION: 1. No evidence of acute right lower quadrant process to explain the patient's pain. Normal appendix. No right hydronephrosis or obstructive uropathy. 2. Persistent inflammation changes around the sigmoid colon which could be new episode of colitis or residual inflammation from 12/25/2021 colitis/diverticulitis.
[2022-03-02] MEDS ORDERED: HYDROmorphone 0.5 MG/0.5 ML SYRINGE IVP STA (22:09)
[2022-03-02] MEDS ORDERED: CIPROFLOXACIN HCL 500 MG TAB PO STA (23:18)
[2022-03-02] MEDS ORDERED: metroNIDAZOLE 500 MG TAB PO STA (23:18)
[2022-03-02 23:51] VITALS: BP 115/82; PULSE 84
== END 2022-03-02 23:49 | disposition home or self-care (01) ==
LOC: EC 19:15
DX: K52.9 Noninfective gastroenteritis and colitis, unspecified (principal); I10 Essential (primary) hypertension; E07.9 Disorder of thyroid, unspecified; Z88.5 Allergy status to narcotic agent; Z91.012 Allergy to eggs; Z91.011 Allergy to milk products; Z91.010 Allergy to peanuts; Z91.018 Allergy to other foods; Z88.6 Allergy status to analgesic agent; Z79.890 Hormone replacement therapy
CPT/HCPCS: 36415; 80053; 82150; 83605; 83690; 85025; 85610; 85730; 81001; 74176; 99284; 96374; 96375; 96361; J2405; J2270; J1170

== ENCOUNTER 2022-03-12 11:03 | Day surgery (SDC) | payer MEDICARE ==
[2022-03-08 10:52] VITALS: BMI 27.1
[~2022-03-12 11:03] MED LIST changes: -LACTATED RINGERS 1,000 ML IV SCH; +LIDOCAINE 1% (10MG/ML) FOR IV START INTRADERMA PRN
[2022-03-12] MEDS: LACTATED RINGERS 1,000 ML IV SCH ×2 (11:50→11:51)
[2022-03-12 11:54] VITALS: TEMP 97.2
[2022-03-12] MEDS ORDERED: ETOMIDATE 2 MG/ML 10 ML VIAL ONE (12:18)
--- NOTE | 2022-03-12 12:23 | P.GSHP ---
History of Present Illness H&P Date: 03/12/22 Chief Complaint: Diverticulitis This a 66-year-old female presents today for colonoscopy. Patient has history of diverticulitis. Past Medical History Past Medical History: Asthma, CVA/TIA, GERD/Reflux, Hyperlipidemia, Hypertension, Renal Disease, Thyroid Disorder Additional Past Medical History / Comment(s): diverticulitis, TIA 3 yrs ago-no residual effects, diarrhea and abdominal pain, COVID Sep 2021 History of Any Multi-Drug Resistant Organisms: None Reported Past Surgical History: Hysterectomy, Joint Replacement, Orthopedic Surgery, Tonsillectomy Additional Past Surgical History / Comment(s): rt knee replacement,. ROTATOR CUFF (BILATERAL). Past Anesthesia/Blood Transfusion Reactions: Previous Problems w/ Anesthesia Additional Past Anesthesia/Blood Transfusion Reaction / Comment(s): SEVERE ALLERGIES. CAN'T TAKE MEDS WITH EGG BASE (HAS HAD REACTION PREVIOUS SURGERIES). Smoking Status: Never smoker - Past Family History Son(s) Family Medical History: Pulmonary Embolus Sister(s) Family Medical History: Deep Vein Thrombosis (DVT) Medications and Allergies Home Medications Medication Instructions Recorded Confirmed Type Ciprofloxacin HCl [Cipro] 500 mg PO BID 10 Days #20 tab 03/02/22 03/12/22 Rx metroNIDAZOLE [Flagyl] 500 mg PO TID 10 Days #30 tab 03/02/22 03/12/22 Rx Dextroamphetamine/Amphetamine 20 mg PO DAILY 03/08/22 03/12/22 History [Adderall 20 mg Tablet] Levothyroxine Sodium [Tirosint] 112 mcg PO QAM 03/08/22 03/12/22 History Omeprazole [PriLOSEC] 20 mg PO AC-BRKFST 03/08/22 03/12/22 History lisinopriL [Zestril] 10 mg PO BID 03/08/22 03/12/22 History Allergies Allergy/AdvReac Type Severity Reaction Status Date / Time hydromorphone [From Dilaudid] Allergy Severe Vomiting,hy Verified 03/08/22 10:41 pertension codeine Allergy Hallucinati Verified 03/08/22 10:41 ons egg Allergy Anaphylaxis Verified 03/08/22 10:41 midazolam [From Versed] Allergy Anaphylaxis Verified 03/08/22 11:02 milk Allergy Dyspnea Verified 03/08/22 10:41 oxycodone [From Percocet] Allergy Nausea & Verified 03/08/22 10:41 Vomiting, HYPERTENSION peanut Allergy Rash/Hives Verified 03/08/22 10:41 soy Allergy Anaphylaxis, Verified 03/08/22 10:41 elevated BP the rapid drop in BP Sugars, Metabolically Active Allergy Unknown Verified 03/12/22 12:03 wheat Allergy Rash/Hives Verified 03/12/22 11:35 Surgical - Exam Vital Signs Temp Pulse Resp BP 97.2 F L 71 16 137/67 03/12/22 11:48 03/12/22 11:48 03/12/22 11:48 03/12/22 11:48 - General well developed, well nourished, no distress - Eyes PERRL - ENT normal pinna - Neck no masses - Respiratory normal expansion - Cardiovascular Rhythm: regular - Abdomen Abdomen: soft, non tender Assessment and Plan Assessment: Diverticulitis. We'll perform colonoscopy
--- NOTE | 2022-03-12 12:35 | P.OP ---
Date of Procedure: 03/12/22 Preoperative Diagnosis: Diverticulitis Postoperative Diagnosis: Diverticulosis Procedure(s) Performed: Colonoscopy Anesthesia: MAC Surgeon: Ladarius Putnam Pathology: none sent Condition: stable Disposition: PACU Description of Procedure: Patient's placed on the endoscopy table. She received IV sedation. Digital rectal exam was performed. This revealed no ebonized. Flexible colonoscope was then placed patient anus and passed throughout the entire colon. The ileocecal valve was visually is. The appendiceal orifice normal. The cecum appeared normal. The ascending colon appeared normal. The transverse colon appeared normal. In the descending and sigmoid colon there is mild diverticular changes. The; was scarred and tortuous that was suggestive of previous diverticulitis. The scope was then brought back the rectum and this appeared normal. Scope withdrawn for patient.
[2022-03-12] MEDS ORDERED: oxyCODONE-APAP 5-325MG 1 EACH TAB ONE (13:05)
[2022-03-12] MEDS ORDERED: oxyCODONE-APAP 5-325MG 1 EACH TAB PO ONE (13:06)
[2022-03-12 13:43] VITALS: BP 121/70; PULSE 70; RESP 20
== END 2022-03-12 13:05 | disposition home or self-care (01) ==
LOC: ORWHC2ENDO 11:03
PROVIDERS: ATTEND Surgery
DX: K57.30 Diverticulosis of large intestine without perforation or abscess without bleeding (principal); J45.909 Unspecified asthma, uncomplicated; K21.9 Gastro-esophageal reflux disease without esophagitis; E78.5 Hyperlipidemia, unspecified; I10 Essential (primary) hypertension; E07.9 Disorder of thyroid, unspecified; N28.9 Disorder of kidney and ureter, unspecified; Z86.73 Personal history of transient ischemic attack (TIA), and cerebral infarction without residual deficits; Z86.16 Personal history of COVID-19; Z90.710 Acquired absence of both cervix and uterus; Z96.651 Presence of right artificial knee joint; Z98.890 Other specified postprocedural states; Z82.49 Family history of ischemic heart disease and other diseases of the circulatory system; Z79.899 Other long term (current) drug therapy; Z91.011 Allergy to milk products; Z88.5 Allergy status to narcotic agent; Z91.010 Allergy to peanuts; Z91.018 Allergy to other foods
CPT/HCPCS: 45378

== ENCOUNTER → 2022-03-27 | Outpatient (CLI) | payer MEDICARE ==
[2022-03-27 15:16] LABS: Basophils # (A) 0.05 X 10*3/uL (0.00-0.10); Basophils % (A) 1.2 %; Eosinophils # (A) 0.16 X 10*3/uL (0.04-0.35); Eosinophils % (A) 3.9 %; HCT 35.4 % (37.2-46.3); HGB 11.1 g/dL (12.0-15.0); Immature Grans, Automated 0.5 %; Lymphocytes # (A) 0.88 X 10*3/uL (0.90-5.00); Lymphocytes % (A) 21.4 %; MCH 27.9 pg (27.0-32.0); MCHC 31.4 g/dL (32.0-37.0); MCV 88.9 fL (80.0-97.0); Mean Platelet Volume 12.5 fL (9.5-12.2); Monocytes # (A) 0.47 X 10*3/uL (0.20-1.00); Monocytes % (A) 11.4 %; NRBC Per 100 WBC 0 /100 WBCS (0.0-0.0); Neutrophils # (A) 2.53 X 10*3/uL (1.80-7.70); Neutrophils % (A) 61.6 %; Platelet Count 216 X 10*3/uL (140-440); RBC 3.98 X 10*6/uL (4.10-5.20); RDW 12.2 % (11.5-14.5); WBC 4.11 X 10*3/uL (4.50-10.00)
[2022-03-27 15:33] LABS: Anion Gap 11.4 mmol/L (10.00-18.00); Carbon Dioxide 24.6 mmol/L (20.0-27.5); Potassium 4.2 mmol/L (3.5-5.5)
== END | disposition home or self-care (01) ==
LOC: LABPAT 09:57
PROVIDERS: ATTEND Surgery
DX: Z01.812 Encounter for preprocedural laboratory examination (principal); K57.33 Diverticulitis of large intestine without perforation or abscess with bleeding
CPT/HCPCS: 80051; 85025; 93005

== ENCOUNTER 2022-04-02 08:03 | Inpatient (IN) | payer MEDICARE ==
[2022-03-27 10:08] VITALS: BMI 27.4
[~2022-04-02 08:03] MED LIST changes: +ACETAMINOPHEN TAB 500 MG TAB PO PRN; +HEPARIN SODIUM,PORCINE/PF 5,000 UNIT/0.5 ML SYRINGE SQ PRN; -LIDOCAINE 1% (10MG/ML) FOR IV START INTRADERMA PRN; +metroNIDAZOLE-NS PMX 500 MG in SALINE 1 100ML.BAG IVPB PRN
[2022-04-02] MEDS ORDERED: LIDOCAINE 1% (10MG/ML) FOR IV START INTRADERMA PRN (08:19)
[2022-04-02] MEDS ORDERED: METOCLOPRAMIDE 5 MG/ML 2 ML VIAL IVP PRN ×2 (08:19→11:57)
[2022-04-02] MEDS ORDERED: ONDANSETRON 4 MG/2 ML VIAL IVP ONE (08:19)
[2022-04-02] MEDS ORDERED: DEXAMETHASONE SOD PHOSPHATE 4 MG/ML 1 ML VIAL IV ONE (08:19)
[2022-04-02] MEDS ORDERED: fentaNYL (PF) 50 MCG/ML 2 ML AMP IV PRN (08:19)
[2022-04-02] MEDS: LACTATED RINGERS 1,000 ML IV SCH (09:21)
[2022-04-02] MEDS ORDERED: fentaNYL (PF) 50 MCG/ML 2 ML AMP IVP ONE (09:27)
[2022-04-02] MEDS ORDERED: NALOXONE 0.4 MG/ML 1 ML VIAL IV PRN (09:36)
[2022-04-02] MEDS ORDERED: ONDANSETRON 4 MG/2 ML VIAL IVP PRN ×2 (09:36→11:57)
[2022-04-02] MEDS ORDERED: diphenhydrAMINE 50 MG/ML 1 ML VIAL IVP PRN (09:36)
--- NOTE | 2022-04-02 09:36 | P.ANPRN ---
Procedure Note - Anesthesia - Epidural/Spinal Epidural Continuous Time Out Performed: Yes Date of Procedure: 04/02/22 Procedure Start Time: : Procedure Stop Time: :33 Location of Patient: PreOp Indication: Requested by Surgeon Sedation Type: Sedate with meaningful contact maintained Preparation: Sterile Prep Position: Sitting Catheter: Indwelling Needle Guage: 18 Injectate: Test Dose Lidocaine1.5% w/1:200,000 epi Blood Aspirated: No Pain Paresthesia on Injection Noted: No Events: Uneventful and Well Tolerated
--- NOTE | 2022-04-02 10:03 | P.GSHP ---
History of Present Illness H&P Date: 04/02/22 Chief Complaint: Diverticulitis This is a 66-year-old female with chronic history of diverticulitis. Patient presents today for low anterior resection. Patient with risk ofcolon infection, bleeding scarring the perforation possible colostomy. Past Medical History Past Medical History: Asthma, CVA/TIA, GERD/Reflux, Hyperlipidemia, Hypertension, Renal Disease, Skin Disorder, Thyroid Disorder Additional Past Medical History / Comment(s): tia 3 yrs ago., diverticulitis & colitis., states loose stools-occasional blood & abdominal pain, COVID Sep 2021., kidney disease stage 3. History of Any Multi-Drug Resistant Organisms: None Reported Past Surgical History: Hysterectomy, Joint Replacement, Orthopedic Surgery, Tonsillectomy Additional Past Surgical History / Comment(s): rt knee replacement,. ROTATOR CUFF (BILATERAL)., colonoscopy Past Anesthesia/Blood Transfusion Reactions: Previous Problems w/ Anesthesia, Postoperative Nausea & Vomiting (PONV) Additional Past Anesthesia/Blood Transfusion Reaction / Comment(s): SEVERE ALLERGIES. CAN'T TAKE MEDS WITH EGG BASE (HAS HAD REACTION PREVIOUS SURGERIES). Past Psychological History: ADD/ADHD Smoking Status: Never smoker Past Alcohol Use History: Occasional Past Drug Use History: None Reported - Past Family History Son(s) Family Medical History: Pulmonary Embolus Sister(s) Family Medical History: Deep Vein Thrombosis (DVT) Medications and Allergies Home Medications Medication Instructions Recorded Confirmed Type Dextroamphetamine/Amphetamine 20 mg PO DAILY 03/08/22 03/27/22 History [Adderall 20 mg Tablet] Levothyroxine Sodium [Tirosint] 112 mcg PO QAM 03/08/22 03/27/22 History Omeprazole [PriLOSEC] 20 mg PO AC-BRKFST 03/08/22 03/27/22 History lisinopriL [Zestril] 10 mg PO BID 03/08/22 03/27/22 History Allergies Allergy/AdvReac Type Severity Reaction Status Date / Time hydromorphone [From Dilaudid] Allergy Severe Vomiting,hy Verified 04/02/22 08:23 pertension codeine Allergy Hallucinati Verified 04/02/22 08:23 ons egg Allergy Anaphylaxis Verified 04/02/22 08:23 midazolam [From Versed] Allergy Anaphylaxis Verified 04/02/22 08:23 milk Allergy Dyspnea Verified 04/02/22 08:23 oxycodone [From Percocet] Allergy Nausea & Verified 04/02/22 08:23 Vomiting, HYPERTENSION peanut Allergy Rash/Hives Verified 04/02/22 08:23 propofol Allergy Rapid Verified 04/02/22 09:48 Heart Rate soy Allergy Anaphylaxis, Verified 04/02/22 08:23 elevated BP the rapid drop in BP Sugars, Metabolically Active Allergy Unknown Verified 04/02/22 08:23 wheat Allergy Rash/Hives Verified 04/02/22 08:23 Surgical - Exam Vital Signs Temp Pulse Resp BP Pulse Ox 96.8 F L 85 16 131/69 100 04/02/22 08:27 04/02/22 08:27 04/02/22 08:27 04/02/22 08:27 04/02/22 08:27 - General well developed, well nourished, no distress - Eyes PERRL - ENT normal pinna, normal nares - Neck no masses - Respiratory normal expansion - Cardiovascular Rhythm: regular - Abdomen Abdomen: soft, non tender Assessment and Plan Assessment: Chronic diverticulitis. Patient will undergo low anterior resection.
[2022-04-02] MEDS ORDERED: ETOMIDATE 2 MG/ML 10 ML VIAL ONE (10:28)
[2022-04-02] MEDS ORDERED: ePHEDrine 50 MG/ML 1 ML VIAL ONE (10:28)
[2022-04-02] MEDS ORDERED: NEOSTIGMINE 1 MG/ML 10 ML VIAL ONE (10:28)
[2022-04-02] MEDS ORDERED: PHENYLEPHRINE-0.9% NACL SYG 1,000 MCG/10 ML SYRINGE ONE (10:28)
[2022-04-02] MEDS ORDERED: GLYCOPYRROLATE 0.2 MG/ML 2 ML VIAL ONE (10:28)
[2022-04-02] MEDS ORDERED: LIDOCAINE 2% INJ 20 MG/ML (2 ML VIAL) ONE (10:28)
[2022-04-02] MEDS ORDERED: SUCCINYLCHOLINE CHLORIDE 100 MG/5 ML SYR IV ONE (10:28)
[2022-04-02] MEDS ORDERED: ROCURONIUM 10 MG/ML (5 ML VIAL) IV ONE (10:28)
[2022-04-02] MEDS ORDERED: LACTATED RINGERS 1,000 ML IV ONE (11:21)
[2022-04-02] MEDS ORDERED: KETOROLAC 15 MG/ML 1 ML VIAL IVP PRN (11:57)
[2022-04-02] MEDS ORDERED: BENZOCAINE/MENTHOL LOZENG 1 EACH LOZENGE MUCOUS MEM PRN (11:57)
--- NOTE | 2022-04-02 11:57 | P.OP ---
Date of Procedure: 04/02/22 Preoperative Diagnosis: Diverticulitis Postoperative Diagnosis: Diverticulitis Procedure(s) Performed: Low anterior resection Anesthesia: LATA Surgeon: Ladarius Putnam Estimated Blood Loss (ml): 10 Pathology: other (Sigmoid colon) Condition: stable Disposition: PACU Description of Procedure: The patient's placed on the operative table in the supine position. She received general endotracheal tube anesthesia. She was then placed in dorsal lithotomy position her abdomen was prepped and draped usual sterile fashion. The abdomen was entered through a low midline incision. Left cautery to dissect the layers of the abdominal wall. The Bookwalter tract placed a wound. The s igmoid colon was visualized. There were adhesions; these were lysed with sharp dissection. The; was then mobilized by dividing the white line of Toldt's and the peritoneal reflections. There was evidence of colonic scarring in the sigmoid colon. At this point a suitable spot for the sigmoid colon transection was chosen proximally. An enterotomy was made with left cautery. And then the anvil for the 25 mm stapler was placed into the colon. The stapler anvil was then driven through the staple wall. And then a hemostat was placed on the base of the anvil. The colon was then transected with a GI stapler. And then the enterotomy was closed using Surgicel suture. The mesentery the bowel was then divided using the Enseal device. Care was taken to identify and preserve the left ureter. The rectum was then transected with the contour stapler. Using the EEA stapler the heel sprayer first placed the stapler patient's anus the spike was driven through the anterior rectal wall. The abdomen was cut to the stapler. The abdomen closed and fired. The stapler was then withdrawn. 2 intact tissue rings were withdrawn stapler. Using a high The colon was occluded and using a rigid sigmoidoscope the colon was insufflated with air. There is no evidence of extravasation along the anastomosis. This point the sigmoid scope was withdrawn. The abdomen was irrigated and no bleeding was seen. Sponge and needle count correct. The fascia was then closed with looped #1 PDS suture. Skin was stapled. Patient top she will was sent to recovery room in stable condition.
[2022-04-02] MEDS: ROPIVACAINE 250 MG, fentaNYL (PF) 625 MCG in SODIUM CHLORIDE 0.9% 188 ML EPIDURAL PRN ×4 (12:04→14:00)
--- NOTE | 2022-04-02 16:43 | P.CONS ---
History of Present Illness - Reason for Consult Consult date: 04/02/22 Medical management Requesting physician: Ladarius Putnam - Chief Complaint Abdominal surgery - History of Present Illness This is a very pleasant 66-year-old patient follows with Dr. Persaud. Chronic stable medical conditions include asthma, GERD, hypertension, hyperlipidemia, hypothyroid, CK D stage III. Patient's had chronic symptoms of diverticulitis and underwent low anterior resection by Dr. Putnam. Post surgery laying in bed. No nausea vomiting. Some pain in the operative site. Has Venodyne boots. No chest pain or shortness of breath. Family at the bedside. Review of systems: GEN.: Tired EYES: None HEENT: None NECK: None RESPIRATORY: None CARDIOVASCULAR: None GASTROINTESTINAL: As above GENITOURINARY: None MUSCULOSKELETAL: None LYMPHATICS: None HEMATOLOGICAL: None PSYCHIATRY: None NEUROLOGICAL: None Past medical history to include: Asthma, GERD, hypertension, hyperlipidemia CK D stage III, TIA 3 years Zocor, hypothyroid, diverticulitis, Coumadin September 2021, Social history: Nonsmoker. Alcohol occasionally. Lives alone. 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 Family history: PE Physical examination: VITAL SIGNS: 97.3, 82, 17, 99 x 66, 99% on 3 L GENERAL: BMI 26.9, laying in bed awake, not in distress. EYES: Pupils equal. Conjunctiva normal. HEENT: External appearance of nose and ears normal, oral cavity grossly normal. NECK: JVD not raised; masses not palpable. HEART: First and second heart sounds are normal; no edema. LUNGS: Respiratory rate normal; clear to auscultation. ABDOMEN: Soft, dressing over the midline incision., liver spleen not palpable, no masses palpable. Reis catheter PSYCH: Alert and oriented x3; mood and affect normal. MUSCULOSKELETAL:No Clubbing/cyanosis;muscles-grossly intact NEUROLOGICAL: Cranial nerves grossly intact; no facial asymmetry, power and sensation grossly intact. LYMPHATICS: No lymph nodes palpable in the axilla and neck INVESTIGATIONS, reviewed in the clinical context: [03/27/2022] WBC 4.1 hemoglobin 11.1 platelets 216 potassium 4.2 Assessment and plan: -Low anterior resection for chronic symptoms of diverticulitis Currently nothing by mouth. IV fluids. -Essential hypertension Zestril 10 mg twice a day -GERD Prilosec 20 mg with breakfast -Hypothyroid Levothyroxine 112 g daily -ADHD Adderall 20 mg daily IV fluids. Venodyne Boots. Pain control. Subcu heparin for DVT prophylaxis. Resume home medications. Currently nothing by mouth. Clear liquids be started in the morning per surgery. Care was discussed with the patient and family the bedside. Questions answered. Thank you Dr. Putnam Past Medical History Past Medical History: Asthma, CVA/TIA, GERD/Reflux, Hyperlipidemia, Hypertension, Renal Disease, Skin Disorder, Thyroid Disorder Additional Past Medical History / Comment(s): tia 3 yrs ago., diverticulitis & colitis., states loose stools-occasional blood & abdominal pain, COVID Sep 2021., kidney disease stage 3. History of Any Multi-Drug Resistant Organisms: None Reported Past Surgical History: Hysterectomy, Joint Replacement, Orthopedic Surgery, Tonsillectomy Additional Past Surgical History / Comment(s): rt knee replacement,. ROTATOR CUFF (BILATERAL)., colonoscopy Past Anesthesia/Blood Transfusion Reactions: Previous Problems w/ Anesthesia, Postoperative Nausea & Vomiting (PONV) Additional Past Anesthesia/Blood Transfusion Reaction / Comm: SEVERE ALLERGIES. CAN'T TAKE MEDS WITH EGG BASE (HAS HAD REACTION PREVIOUS SURGERIES). Past Psychological History: ADD/ADHD Smoking Status: Never smoker Past Alcohol Use History: Occasional Past Drug Use History: None Reported - Past Family History Son(s) Family Medical History: Pulmonary Embolus Sister(s) Family Medical History: Deep Vein Thrombosis (DVT) Medications and Allergies Home Medications Medication Instructions Recorded Confirmed Type Dextroamphetamine/Amphetamine 20 mg PO DAILY 03/08/22 03/27/22 History [Adderall 20 mg Tablet] Levothyroxine Sodium [Tirosint] 112 mcg PO QAM 03/08/22 03/27/22 History Omeprazole [PriLOSEC] 20 mg PO AC-BRKFST 03/08/22 03/27/22 History lisinopriL [Zestril] 10 mg PO BID 03/08/22 03/27/22 History Allergies Allergy/AdvReac Type Severity Reaction Status Date / Time hydromorphone [From Dilaudid] Allergy Severe Vomiting,hy Verified 04/02/22 08:23 pertension codeine Allergy Hallucinati Verified 04/02/22 08:23 ons egg Allergy Anaphylaxis Verified 04/02/22 08:23 midazolam [From Versed] Allergy Anaphylaxis Verified 04/02/22 08:23 milk Allergy Dyspnea Verified 04/02/22 08:23 oxycodone [From Percocet] Allergy Nausea & Verified 04/02/22 08:23 Vomiting, HYPERTENSION peanut Allergy Rash/Hives Verified 04/02/22 08:23 propofol Allergy Rapid Verified 04/02/22 09:48 Heart Rate soy Allergy Anaphylaxis, Verified 04/02/22 08:23 elevated BP the rapid drop in BP Sugars, Metabolically Active Allergy Unknown Verified 04/02/22 08:23 wheat Allergy Rash/Hives Verified 04/02/22 08:23 Physical Exam Vitals: Vital Signs Temp Pulse Pulse Pulse Resp BP BP 04/02/22 14:54 97.3 F L 82 17 99/66 04/02/22 14:22 82 16 99/66 04/02/22 14:10 82 16 99/66 04/02/22 13:52 52 L 16 112/57 04/02/22 13:37 50 L 16 104/56 04/02/22 13:22 53 L 16 97/59 04/02/22 13:07 52 L 16 94/51 04/02/22 12:52 55 L 16 91/51 04/02/22 12:37 55 L 16 91/52 04/02/22 12:29 56 L 16 84/50 04/02/22 12:24 53 L 16 79/53 04/02/22 12:18 53 L 16 79/51 04/02/22 12:02 97 F L 95 16 98/61 04/02/22 09:36 75 16 129/79 04/02/22 08:27 96.8 F L 85 16 131/69 Pulse Ox 04/02/22 14:54 99 04/02/22 14:22 99 04/02/22 14:10 99 04/02/22 13:52 100 04/02/22 13:37 97 04/02/22 13:22 99 04/02/22 13:07 100 04/02/22 12:52 100 04/02/22 12:37 100 04/02/22 12:29 100 04/02/22 12:24 100 04/02/22 12:18 100 04/02/22 12:02 100 04/02/22 09:36 98 07/18/22 08:27 100 Intake and Output 04/02/22 04/02/22 04/02/22 06:59 14:59 22:59 Intake Total 2956 Output Total 125 Balance 2831 Intake: IV 2956 Output: Urine 75 Estimated Blood Loss 50 Other: Weight 69 kg
[2022-04-02] MEDS: HEPARIN SODIUM,PORCINE/PF 5,000 UNIT/0.5 ML SYRINGE SQ SCH (17:01)
[2022-04-02] MEDS: D5-0.45% NACL WITH KCL 20MEQ/L 1,000 ML IV SCH (17:30)
[2022-04-02] MEDS: ALVIMOPAN 12 MG CAPSULE PO SCH (21:26)
[2022-04-02] MEDS: lisinopriL 10 MG TAB PO SCH (21:26)
[2022-04-02] MEDS: FAMOTIDINE 20 MG/2 ML VIAL IV SCH (22:14)
[2022-04-03] MEDS: HEPARIN SODIUM,PORCINE/PF 5,000 UNIT/0.5 ML SYRINGE SQ SCH ×3 (00:10→17:14)
[2022-04-03] MEDS: D5-0.45% NACL WITH KCL 20MEQ/L 1,000 ML IV SCH ×2 (02:16→04:21)
[2022-04-03] MEDS ORDERED: LEVOTHYROXINE SODIUM 112 MCG PO SCH (09:00)
[2022-04-03] MEDS: NON FORMULARY DRUG (Dextroamphetamine/Amphetamine [Adderall 20 Mg Tablet] 20 MG Tablet) PO SCH (09:17)
[2022-04-03] MEDS: lisinopriL 10 MG TAB PO SCH (09:17)
[2022-04-03] MEDS: ALVIMOPAN 12 MG CAPSULE PO SCH ×2 (09:17→21:28)
[2022-04-03] MEDS: PANTOPRAZOLE 40 MG TABLET PO SCH (09:18)
[2022-04-03] MEDS: LACTATED RINGERS 1,000 ML IV SCH (09:18)
[2022-04-03] MEDS: FAMOTIDINE 20 MG/2 ML VIAL IV SCH ×2 (09:18→21:28)
--- NOTE | 2022-04-03 10:27 | P.PN ---
Progress Note - Text Progress Note Date: 04/03/22 The patient has a lumbar epidural catheter for postoperative pain control. Postop day #( 1 ), status post low anterior resection. The patient is doing well. The pain is well controlled with only 2 ml/hr of epidural infusion.Higher rates of infusion caused moderate hypotension, but the current low rate is tolerated well. Patient denies any weakness or paresthesia in the lower extremities.,or any back pain. There are no signs of infection around the epidural catheter skin entry site. We will continue the epidural infusion of local anesthetics as per protocol.
[2022-04-03 10:33] LABS: Basophils # (A) 0.01 X 10*3/uL (0.00-0.10); Basophils % (A) 0.1 %; Eosinophils # (A) 0 X 10*3/uL (0.04-0.35); Eosinophils % (A) 0 %; HGB 10.6 g/dL (12.0-15.0); Immature Grans, Automated 0.4 %; Lymphocytes # (A) 0.47 X 10*3/uL (0.90-5.00); Lymphocytes % (A) 3.8 %; MCH 28.3 pg (27.0-32.0); MCHC 32.1 g/dL (32.0-37.0); Mean Platelet Volume 12.8 fL (9.5-12.2); Monocytes # (A) 0.87 X 10*3/uL (0.20-1.00); NRBC Per 100 WBC 0 /100 WBCS (0.0-0.0); Neutrophils # (A) 10.98 X 10*3/uL (1.80-7.70); Neutrophils % (A) 88.7 %; Platelet Count 210 X 10*3/uL (140-440); RBC 3.75 X 10*6/uL (4.10-5.20); RDW 11.9 % (11.5-14.5); WBC 12.38 X 10*3/uL (4.50-10.00)
[2022-04-03 10:50] LABS: Anion Gap 9.7 mmol/L (10.00-18.00); BUN/Creat Ratio 12.8 Ratio (12.00-20.00); Blood Urea Nitrogen 12.8 mg/dL (9.0-27.0); Calcium 8.9 mg/dL (8.7-10.3); Carbon Dioxide 23.3 mmol/L (20.0-27.5); Non-African American GFR(CKD) 58.7 (60.0-200.0); Potassium 5.4 mmol/L (3.5-5.5)
--- NOTE | 2022-04-03 12:39 | P.PN ---
Subjective Progress Note Date: 04/03/22 CHIEF COMPLAINT: Diverticulitis HISTORY OF PRESENT ILLNESS: Patient is postop day #1 status post lower anterior resection. Her pain is controlled. She has epidural in place only at 2 mL/hr. patient has been up and ambulating in hallway. urine output adequate. vitals stable. Afebrile. WBC 12.38 Hgb 10.6 platelets 210 creatinine 1.0 PHYSICAL EXAM: VITAL SIGNS: Reviewed. GENERAL: Well-developed in no acute distress. HEENT: No sclera icterus. Extraocular movements grossly intact. Moist buccal mucosa. Head is atraumatic, normocephalic. ABDOMEN: Soft. Mildly distended. Incisional dressing 3 small areas of saturation noted. NEUROLOGIC: Alert and oriented. Cranial nerves II through XII grossly intact. ASSESSMENT: 1. Diverticulitis status post lower anterior resection PLAN: -Continue epidural for pain control -Continue Reis catheter -Encourage patient to ambulate -Encourage patient to use incentive spirometer -Continue clear liquid diet -Continue IV fluids -GI prophylaxis Protonix and DVT prophylaxis subcu heparin Physician Senior Manufacturing Test Engineer note has been reviewed by physician. Signing provider agrees with the documented findings, assessment, and plan of care. Objective - Vital Signs Vital signs: Vital Signs Temp 97.8 F 04/03/22 07:35 Pulse 70 04/03/22 07:35 Resp 16 04/03/22 07:35 BP 122/72 04/03/22 07:35 Pulse Ox 99 04/03/22 07:35 FiO2 Intake & Output 04/02/22 04/03/22 04/03/22 18:59 06:59 18:59 Intake Total 2956 1080 320 Output Total 125 1500 Balance 2831 1080 -1180 Weight 69 kg Intake: IV 2956 Oral 1080 320 Output: Urine 75 1500 Estimated Blood Loss 50 Other: Voiding Method Indwelling Catheter - Labs CBC & Chem 7: 04/03/22 06:29 04/03/22 06:29 Labs: Abnormal Lab Results - Last 24 Hours (Table) 04/03/22 04/03/22 Range/Units 06:29 06:29 WBC 12.38 H (4.50-10.00) X 10*3/uL RBC 3.75 L (4.10-5.20) X 10*6/uL Hgb 10.6 L (12.0-15.0) g/dL Hct 33.0 L (37.2-46.3) % MPV 12.8 H (9.5-12.2) fL Immature Gran # 0.05 H (0.00-0.04) X 10*3/uL Neutrophils # 10.98 H (1.80-7.70) X 10*3/uL Lymphocytes # 0.47 L (0.90-5.00) X 10*3/uL Eosinophils # 0 L (0.04-0.35) X 10*3/uL Anion Gap 9.70 L (10.00-18.00) mmol/L Est GFR (CKD-EPI)NonAf 58.7 L (60.0-200.0) Glucose 141 H (70-110) mg/dL
--- NOTE | 2022-04-03 12:54 | P.PN ---
Progress Note - Text Progress Note Date: 04/03/22 - Chief Complaint Abdominal surgery Hospital course This is a very pleasant 66-year-old patient follows with Dr. Persaud. Chronic stable medical conditions include asthma, GERD, hypertension, hyperlipidemia, hypothyroid, CK D stage III. Patient's had chronic symptoms of diverticulitis and underwent low anterior resection by Dr. Putnam. Post surgery laying in bed. No nausea vomiting. Some pain in the operative site. Has Venodyne boots. No chest pain or shortness of breath. Family at the bedside. April 03: Up in a chair. Did walk the hallway. No nausea vomiting. Pain control. No flatus. Clear liquid diet. Active Medications Alvimopan (Alvimopan 12 Mg Capsule) 12 mg PO BID [facility] Stop: 04/09/22 09:01 Last Admin: 04/03/22 09:17 Dose: 12 mg Benzocaine/Menthol (Benzocaine/Menthol Lozeng 1 Each Lozenge) 1 each MUCOUS MEM Q1HR PRN PRN Reason: Sore Throat Diphenhydramine HCl (Diphenhydramine 50 Mg/Ml 1 Ml Vial) 25 mg IVP Q6HR PRN PRN Reason: Itching Famotidine (Famotidine 20 Mg/2 Ml Vial) 20 mg IV BID [facility] Last Admin: 04/03/22 09:18 Dose: Not Given Fentanyl Citrate (Fentanyl (Pf) 50 Mcg/Ml 2 Ml Amp) 50 mcg IV Q3M PRN PRN Reason: Phase I - Pain Control Stop: 05/02/22 08:20 Heparin Sodium (Porcine) (Heparin Sodium,Porcine/Pf 5,000 Unit/0.5 Ml Syringe) 5,000 unit SQ Q8HR [facility] Last Admin: 04/03/22 09:18 Dose: 5,000 unit Lactated Ringer's (Lactated Ringers) 1,000 mls @ 20 mls/hr IV .Q24H [facility] Last Admin: 04/03/22 09:18 Dose: Not Given Ropivacaine 250 mg/ Fentanyl Citrate 625 mcg/ Sodium Chloride 250 mls @ 0 mls/hr EPIDURAL .Q0M PRN; Protocol PRN Reason: Moderate Breakthrough Pain Last Admin: 04/02/22 14:00 Dose: 6 mls Potassium Chloride/Dextrose/Sod Cl (D5%-1/2ns-Kcl 20 Meq/L Iv Solution) 1,000 mls @ 125 mls/hr IV .Q8H [facility] Last Admin: 04/03/22 04:21 Dose: 125 mls/hr Lidocaine HCl (Lidocaine 1% (10mg/Ml) For Iv Start) 0.1 ml INTRADERMA PER PROTOCOL PRN PRN Reason: IV Start Lisinopril (Lisinopril 10 Mg Tab) 10 mg PO BID [facility] Last Admin: 04/03/22 09:17 Dose: 10 mg Metoclopramide HCl (Metoclopramide 5 Mg/Ml 2 Ml Vial) 10 mg IVP ONCE PRN PRN Reason: Phase 1 or 2 - Nausea/Vomiting Stop: 05/02/22 08:20 Metoclopramide HCl (Metoclopramide 5 Mg/Ml 2 Ml Vial) 10 mg IVP Q6HR PRN PRN Reason: Nausea and Vomiting Naloxone HCl (Naloxone 0.4 Mg/Ml 1 Ml Vial) 0.2 mg IV Q2M PRN PRN Reason: Opioid Reversal Non-Formulary Medication (Dextroamphetamine/Amphetamine [Adderall 20 Mg Tablet]) 20 mg PO DAILY [facility] Last Admin: 04/03/22 09:17 Dose: Not Given Non-Formulary Medication (Levothyroxine Sodium [Tirosint]) 112 mcg PO QAM [facility] Last Admin: 04/03/22 09:17 Dose: 112 mcg Ondansetron HCl (Ondansetron 4 Mg/2 Ml Vial) 4 mg IVP Q8HR PRN PRN Reason: Nausea And Vomiting Ondansetron HCl (Ondansetron 4 Mg/2 Ml Vial) 4 mg IVP Q8HR PRN PRN Reason: Nausea And Vomiting Pantoprazole Sodium (Pantoprazole 40 Mg Tablet) 40 mg PO AC-BRKFST [facility] Last Admin: 04/03/22 09:18 Dose: Not Given Past medical history to include: Asthma, GERD, hypertension, hyperlipidemia CK D stage III, TIA 3 years Zocor, hypothyroid, diverticulitis, Coumadin September 2021, Social history: Nonsmoker. Alcohol occasionally. Lives alone. 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 Family history: PE Physical examination: VITAL SIGNS: 97.8, 70, 16, 122/72, 99% room air GENERAL: Sitting up in a chair, comfortable. EYES: Pupils equal. Conjunctiva normal. HEENT: External appearance of nose and ears normal, oral cavity grossly normal. NECK: JVD not raised; masses not palpable. HEART: First and second heart sounds are normal; no edema. LUNGS: Respiratory rate normal; clear to auscultation. ABDOMEN: Soft, dressing over the midline incision., liver spleen not palpable, no masses palpable. PSYCH: Alert and oriented x3; mood and affect normal. MUSCULOSKELETAL:No Clubbing/cyanosis;muscles-grossly intact INVESTIGATIONS, reviewed in the clinical context: April 03: White count 12.3 hemoglobin 10.6 platelets 210 potassium 5.4 creatinine 1.0 [03/27/2022] WBC 4.1 hemoglobin 11.1 platelets 216 potassium 4.2 Assessment and plan: -Low anterior resection for chronic symptoms of diverticulitis Clear liquids. IV fluids. -Hyperkalemia Stop IV fluids with potassium supplement. Stop LR. Lokelma 2 doses. Cutback dose of Zestril -Essential hypertension Zestril 10 mg twice a day -GERD Prilosec 20 mg with breakfast -Hypothyroid Levothyroxine 112 g daily -ADHD Adderall 20 mg daily Will DC IV fluids which has potassium supplemented. Also DC lactated Ringer's. Changed to normal saline. We'll give 2 doses of Lokelma. Repeat labs in the morning. Cutback doses of Zestril Thank you Dr. Putnam
[2022-04-03] MEDS: SODIUM ZIRCONIUM CYCLOSILICATE 10 GM PACKET PO SCH ×2 (13:50→22:09)
[2022-04-03] MEDS: SODIUM CHLORIDE 0.9% 1,000 ML IV SCH (14:40)
[2022-04-04] MEDS: HEPARIN SODIUM,PORCINE/PF 5,000 UNIT/0.5 ML SYRINGE SQ SCH ×3 (00:45→17:17)
[2022-04-04] MEDS: LEVOTHYROXINE SODIUM 112 MCG PO SCH ×2 (02:46→02:55)
[2022-04-04] MEDS: ROPIVACAINE 250 MG, fentaNYL (PF) 625 MCG in SODIUM CHLORIDE 0.9% 188 ML EPIDURAL PRN (02:46)
[2022-04-04 07:18] LABS: African American GFR (CKD) 69 (>60 ml/min/1.73 sqM); Anion Gap 3 mmol/L; Blood Urea Nitrogen 10 mg/dL (7-17); Calcium 8.7 mg/dL (8.4-10.2); Carbon Dioxide 24 mmol/L (22-30); Chloride 108 mmol/L (98-107); Glucose 94 mg/dL (74-99); Non-African American GFR(CKD) 60 (>60 ml/min/1.73 sqM); Potassium 4.2 mmol/L (3.5-5.1); Sodium 135 mmol/L (137-145)
[2022-04-04] MEDS: NON FORMULARY DRUG (Dextroamphetamine/Amphetamine [Adderall 20 Mg Tablet] 20 MG Tablet) PO SCH (07:50)
[2022-04-04] MEDS: ALVIMOPAN 12 MG CAPSULE PO SCH ×2 (07:53→20:42)
[2022-04-04] MEDS: PANTOPRAZOLE 40 MG TABLET PO SCH (07:53)
[2022-04-04] MEDS: SODIUM CHLORIDE 0.9% 1,000 ML IV SCH (07:55)
[2022-04-04 08:17] LABS: Basophils # (A) 0.1 k/uL (0-0.2); Basophils % (A) 1 %; Eosinophils % (A) 0 %; HCT 32.1 % (34.0-46.0); Lymphocytes # (A) 0.9 k/uL (1.0-4.8); Lymphocytes % (A) 11 %; MCH 29.4 pg (25.0-35.0); MCHC 32.6 g/dL (31.0-37.0); MCV 90.1 fL (80.0-100.0); Mean Platelet Volume 10.1; Monocytes # (A) 0.5 k/uL (0-1.0); Monocytes % (A) 7 %; Neutrophils # (A) 6.7 k/uL (1.3-7.7); Neutrophils % (A) 81 %; Platelet Count 174 k/uL (150-450); RBC 3.56 m/uL (3.80-5.40); RDW 12.3 % (11.5-15.5); WBC 8.3 k/uL (3.8-10.6)
[2022-04-04 08:26] LABS: HGB 10.5 gm/dL (11.4-16.0)
--- NOTE | 2022-04-04 09:52 | P.PN ---
Progress Note - Text Date: 04/04/2022 Time: 07:23 The patient is status post, low anterior resection, postoperative day number 2. The patient has no complaints of nausea vomiting or headache. The patient does not complain of any lower extremity numbness or weakness. The epidural is running at[1] mL per hour. VAS 0-10. The epidural will be possibly discon tinued today depending on input from the service.
[2022-04-04] MEDS: lisinopriL 10 MG TAB PO SCH ×2 (09:54→20:42)
[2022-04-04] MEDS: ACETAMINOPHEN TAB 500 MG TAB PO SCH ×2 (11:54→17:17)
--- NOTE | 2022-04-04 12:49 | P.PN ---
Subjective Progress Note Date: 04/04/22 CHIEF COMPLAINT: Diverticulitis HISTORY OF PRESENT ILLNESS: Patient is postop day #2 status post lower anterior resection. Her pain is controlled. She has epidural in place only at 1 mL/hr. patient reports that she does have more pain with activity. But it is tolerable. She denies any flatus. Denies any nausea or vomiting. She is requesting that the epidural be discontinued. Afebrile. WBC is 8.3 Hgb 10.5 creatinine 0.99 PHYSICAL EXAM: VITAL SIGNS: Reviewed. GENERAL: Well-developed in no acute distress. HEENT: No sclera icterus. Extraocular movements grossly intact. Moist buccal mucosa. Head is atraumatic, normocephalic. ABDOMEN: Soft. Nondistended. Incisional dressing 3 small areas of saturation noted. NEUROLOGIC: Alert and oriented. Cranial nerves II through XII grossly intact. ASSESSMENT: 1. Diverticulitis status post lower anterior resection PLAN: -Discontinue epidural -Discontinue Reis catheter -Start oral Tylenol for pain -Encourage patient to ambulate -Encourage patient to use incentive spirometer -Continue clear liquid diet -Continue IV fluids -Continue Entereg until bowel activity begins -GI prophylaxis Protonix and DVT prophylaxis subcu heparin Physician Display Designer note has been reviewed by physician. Signing provider agrees with the documented findings, assessment, and plan of care. Objective - Vital Signs Vital signs: Vital Signs Temp 98.2 F 04/04/22 07:01 Pulse 61 04/04/22 07:01 Resp 22 04/04/22 07:01 BP 150/76 04/04/22 07:01 Pulse Ox 99 04/04/22 07:01 FiO2 Intake & Output 04/03/22 04/04/22 04/04/22 18:59 06:59 18:59 Intake Total 840 48.667 189.05 Output Total 1800 1325 1375 Balance -960 -9186.333 -1185.95 Intake: Intake, IV Titration 48.667 9.05 Amount Ropivacaine 250 mg 48.667 9.05 fentaNYL (PF) 625 mcg In Sodium Chloride 0.9% 188 ml @ Per Protocol EPIDURAL .Q0M PRN Rx#: [id number] Oral 840 180 Output: Urine 1800 1325 1375 Other: Voiding Method Indwelling Catheter Indwelling Catheter Indwelling Catheter - Labs CBC & Chem 7: 04/04/22 06:37 04/04/22 06:37 Labs: Abnormal Lab Results - Last 24 Hours (Table) 04/04/22 04/04/22 Range/Units 06:37 06:37 RBC 3.56 L (3.80-5.40) m/uL Hgb 10.5 L D (11.4-16.0) gm/dL Hct 32.1 L (34.0-46.0) % Lymphocytes # 0.9 L (1.0-4.8) k/uL Sodium 135 L (137-145) mmol/L Chloride 108 H (98-107) mmol/L
--- NOTE | 2022-04-04 18:38 | P.PN ---
Progress Note - Text Progress Note Date: 04/04/22 - Chief Complaint Abdominal surgery Hospital course This is a very pleasant 66-year-old patient follows with Dr. Persaud. Chronic stable medical conditions include asthma, GERD, hypertension, hyperlipidemia, hypothyroid, CK D stage III. Patient's had chronic symptoms of diverticulitis and underwent low anterior resection by Dr. Putnam. Post surgery laying in bed. No nausea vomiting. Some pain in the operative site. Has Venodyne boots. No chest pain or shortness of breath. Family at the bedside. April 03: Up in a chair. Did walk the hallway. No nausea vomiting. Pain control. No flatus. Clear liquid diet. April 04: Up in chair. Passed flatus. Clear liquids. Pain control. Home dose of lisinopril advanced discussed with patient. Active Medications Acetaminophen (Acetaminophen Tab 500 Mg Tab) 1,000 mg PO Q6HR [facility] Last Admin: 04/04/22 17:17 Dose: 1,000 mg Alvimopan (Alvimopan 12 Mg Capsule) 12 mg PO BID [facility] Stop: 04/09/22 09:01 Last Admin: 04/04/22 07:53 Dose: 12 mg Benzocaine/Menthol (Benzocaine/Menthol Lozeng 1 Each Lozenge) 1 each MUCOUS MEM Q1HR PRN PRN Reason: Sore Throat Diphenhydramine HCl (Diphenhydramine 50 Mg/Ml 1 Ml Vial) 25 mg IVP Q6HR PRN PRN Reason: Itching Famotidine (Famotidine 20 Mg/2 Ml Vial) 20 mg IV HS [facility] Last Admin: 04/03/22 21:28 Dose: 20 mg Fentanyl Citrate (Fentanyl (Pf) 50 Mcg/Ml 2 Ml Amp) 50 mcg IV Q3M PRN PRN Reason: Phase I - Pain Control Stop: 05/02/22 08:20 Heparin Sodium (Porcine) (Heparin Sodium,Porcine/Pf 5,000 Unit/0.5 Ml Syringe) 5,000 unit SQ Q8HR [facility] Last Admin: 04/04/22 17:17 Dose: 5,000 unit Ropivacaine 250 mg/ Fentanyl Citrate 625 mcg/ Sodium Chloride 250 mls @ 0 mls/hr EPIDURAL .Q0M PRN; Protocol PRN Reason: Moderate Breakthrough Pain Last Infusion: 04/04/22 11:49 Dose: 0 mls/hr Sodium Chloride (Saline 0.9%) 1,000 mls @ 50 mls/hr IV .Q20H [facility] Last Admin: 04/04/22 07:55 Dose: Not Given Lidocaine HCl (Lidocaine 1% (10mg/Ml) For Iv Start) 0.1 ml INTRADERMA PER PROTOCOL PRN PRN Reason: IV Start Lisinopril (Lisinopril 10 Mg Tab) 10 mg PO BID [facility] Last Admin: 04/04/22 09:54 Dose: 10 mg Metoclopramide HCl (Metoclopramide 5 Mg/Ml 2 Ml Vial) 10 mg IVP ONCE PRN PRN Reason: Phase 1 or 2 - Nausea/Vomiting Stop: 05/02/22 08:20 Metoclopramide HCl (Metoclopramide 5 Mg/Ml 2 Ml Vial) 10 mg IVP Q6HR PRN PRN Reason: Nausea and Vomiting Naloxone HCl (Naloxone 0.4 Mg/Ml 1 Ml Vial) 0.2 mg IV Q2M PRN PRN Reason: Opioid Reversal Non-Formulary Medication (Dextroamphetamine/Amphetamine [Adderall 20 Mg Tablet]) 20 mg PO DAILY [facility] Last Admin: 04/04/22 07:50 Dose: Not Given Non-Formulary Medication (Levothyroxine Sodium [Tirosint]) 112 mcg PO DAILY@0300 [facility] Ondansetron HCl (Ondansetron 4 Mg/2 Ml Vial) 4 mg IVP Q8HR PRN PRN Reason: Nausea And Vomiting Ondansetron HCl (Ondansetron 4 Mg/2 Ml Vial) 4 mg IVP Q8HR PRN PRN Reason: Nausea And Vomiting Pantoprazole Sodium (Pantoprazole 40 Mg Tablet) 40 mg PO AC-BRKFST [facility] Last Admin: 04/04/22 07:53 Dose: 40 mg Past medical history to include: Asthma, GERD, hypertension, hyperlipidemia CK D stage III, TIA 3 years Zocor, hypothyroid, diverticulitis, Coumadin September 2021, Social history: Nonsmoker. Alcohol occasionally. Lives alone. 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 EYES: Pupils equal. Conjunctiva normal. HEENT: External appearance of nose and ears normal, oral cavity grossly normal. NECK: JVD not raised; masses not palpable. HEART: First and second heart sounds are normal; no edema. LUNGS: Respiratory rate normal; clear to auscultation. ABDOMEN: Soft, dressing over the midline incision., liver spleen not palpable, no masses palpable. PSYCH: Alert and oriented x3; mood and affect normal. MUSCULOSKELETAL:No Clubbing/cyanosis;muscles-grossly intact INVESTIGATIONS, reviewed in the clinical context: April 04: WBC 8.3 hemoglobin 10.5 potassium 4.2 creatinine 0.99 April 03: White count 12.3 hemoglobin 10.6 platelets 210 potassium 5.4 creatinine 1.0 [03/27/2022] WBC 4.1 hemoglobin 11.1 platelets 216 potassium 4.2 Assessment and plan: -Low anterior resection for chronic symptoms of diverticulitis Clear liquids. IV fluids. -Hyperkalemia: Corrected Stop IV fluids with potassium supplement. Stop LR. Lokelma 2 doses. -Essential hypertension Zestril 10 mg twice a day -GERD Prilosec 20 mg with breakfast -Hypothyroid Levothyroxine 112 g daily -ADHD Adderall 20 mg daily Continue saline at 50 mL an hour. Telemetry liquids. On Entereg. Zestril dose increase. Discussed with the patient. Increase activity. Thank you Dr. Putnam
[2022-04-04] MEDS: FAMOTIDINE 20 MG/2 ML VIAL IV SCH (20:42)
[2022-04-04] MEDS ORDERED: lisinopriL 10 MG TAB PO SCH (21:00)
[2022-04-05] MEDS: HEPARIN SODIUM,PORCINE/PF 5,000 UNIT/0.5 ML SYRINGE SQ SCH ×2 (00:50→08:12)
[2022-04-05] MEDS: ACETAMINOPHEN TAB 500 MG TAB PO SCH ×3 (00:50→11:32)
[2022-04-05] MEDS ORDERED: LEVOTHYROXINE SODIUM 112 MCG PO SCH (03:00)
[2022-04-05] MEDS: SODIUM CHLORIDE 0.9% 1,000 ML IV SCH (05:26)
[2022-04-05] MEDS: ALVIMOPAN 12 MG CAPSULE PO SCH (08:12)
[2022-04-05] MEDS: lisinopriL 10 MG TAB PO SCH (08:12)
[2022-04-05] MEDS: PANTOPRAZOLE 40 MG TABLET PO SCH (08:12)
[2022-04-05] MEDS: NON FORMULARY DRUG (Dextroamphetamine/Amphetamine [Adderall 20 Mg Tablet] 20 MG Tablet) PO SCH (08:14)
--- NOTE | 2022-04-05 12:11 | P.PN ---
Subjective Progress Note Date: 04/05/22 Hospital course This is a very pleasant 66-year-old patient follows with Dr. Persaud. Chronic stable medical conditions include asthma, GERD, hypertension, hyperlipidemia, hypothyroid, CK D stage III. Patient's had chronic symptoms of diverticulitis and underwent low anterior resection by Dr. Putnam. Post surgery laying in bed. No nausea vomiting. Some pain in the operative site. Has Venodyne boots. No chest pain or shortness of breath. Family at the bedside. April 03: Up in a chair. Did walk the hallway. No nausea vomiting. Pain control. No flatus. Clear liquid diet. April 04: Up in chair. Passed flatus. Clear liquids. Pain control. Home dose of lisinopril advanced discussed with patient. April 05: Patient is evaluated ambulating in the room. She is passing gas. No BM yet. She has not eaten much, has been on clear liquids. Advanced today to full liquid and tolerated well. No nausea, no vomiting. Mild abdominal pain, reports as "feeling sore". Wearing abdominal binder. Medically she is stable. T-max 99.1 overnight, blood pressure 134/78. 96% room air, heart rate 74. She is hoping to be discharged today. Past medical history to include: Asthma, GERD, hypertension, hyperlipidemia CK D stage III, TIA 3 years Zocor, hypothyroid, diverticulitis, Coumadin September 2021, Social history: Nonsmoker. Alcohol occasionally. Lives alone. 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 Family history: PE Physical examination: VITAL SIGNS: 98.8, Heart rate 74, blood pressure 134/78, 96% room air. GENERAL: Sitting up in a chair, comfortable. EYES: Pupils equal. Conjunctiva normal. HEENT: External appearance of nose and ears normal, oral cavity grossly normal. NECK: JVD not raised; masses not palpable. HEART: First and second heart sounds are normal; no edema. LUNGS: Respiratory rate normal; clear to auscultation. ABDOMEN: Soft, dressing over the midline incision., liver spleen not palpable, no masses palpable. PSYCH: Alert and oriented x3; mood and affect normal. MUSCULOSKELETAL:No Clubbing/cyanosis;muscles-grossly intact INVESTIGATIONS, reviewed in the clinical context: April 04: WBC 8.3 hemoglobin 10.5 potassium 4.2 creatinine 0.99 April 03: White count 12.3 hemoglobin 10.6 platelets 210 potassium 5.4 creatinine 1.0 [03/27/2022] WBC 4.1 hemoglobin 11.1 platelets 216 potassium 4.2 April 05, no labs available for review today Assessment and plan: -Low anterior resection for chronic symptoms of diverticulitis Full liquid, no IV access fluids not infusing -Hyperkalemia: Corrected Potassium now 4.2 after lokelma -Essential hypertension Zestril 10 mg twice a day -GERD Prilosec 20 mg with breakfast -Hypothyroid Levothyroxine 112 g daily -ADHD Adderall 20 mg daily Diet as per primary, now on full liquid. On Entereg. Zestril dose increase. En couraged incentive spirometry use. Patient is hoping for discharge today, medically she is stable, recommend primary care follow up on D/C, CBC and BMP in 2-3 days. Additional orders as per primary. Thank you Dr. Putnam. The impression and plan of care has been dictated by Jessica Perla, Nurse Practitioner as directed. Dr. Fratun MD I have performed a history and physical examination and medical decision making of this patient, discussed the same with the dictator, and agree with the dictators assessment and plan as written, documented as a scribe. Based on total visit time, I have performed more than 50% of this visit. Objective - Vital Signs Vital signs: Vital Signs Temp 98.8 F 04/05/22 07:29 Pulse 74 04/05/22 07:29 Resp 20 04/05/22 08:15 BP 134/78 04/05/22 07:29 Pulse Ox 96 04/05/22 08:04 FiO2 Intake & Output 04/04/22 04/05/22 04/05/22 18:59 06:59 18:59 Intake Total 189.05 Output Total 1725 800 Balance -1535.95 -800 Intake: Intake, IV Titration 9.05 Amount Ropivacaine 250 mg 9.05 fentaNYL (PF) 625 mcg In Sodium Chloride 0.9% 188 ml @ Per Protocol EPIDURAL .Q0M PRN Rx#: [id number] Oral 180 Output: Urine 1725 800 Other: Voiding Method Indwelling Catheter Toilet # Voids 2 - Labs CBC & Chem 7: 04/04/22 06:37 07/20/22 06:37 Assessment and Plan Time with Patient: Less than 30
--- NOTE | 2022-04-05 13:19 | P.DS ---
Providers Date of admission: 04/02/22 08:03 Expected date of discharge: 04/05/22 Attending physician: Ladarius Putnam Consults: 04/02/22 15:43 Consult Physician Routine Consulting Provider: Julián Aguilar Consult Reason/Comments: Med management Do you want consulting provider notified?: Already Contacted Primary care physician: Raúl [facility] Hospital Course: Discharge diagnosis 1. Diverticulitis status post lower anterior resection Hospital course This is a 66-year-old female with chronic history of diverticulitis. She is status post lower anterior resection. Patient tolerated surgery well. Her pain is controlled. She is tolerating diet. She's up and ambulating. She is having flatus. She's afebrile. Incision site clean dry and intact. She is stable for discharge. Physician Manufactured Buildings Repairer note has been reviewed by physician. Signing provider agrees with the documented findings, assessment, and plan of care. Patient Condition at Discharge: Stable Plan - Discharge Summary Discharge Rx Participant: Yes New Discharge Prescriptions: New Pantoprazole [Protonix] 40 mg PO AC-BRKFST 14 Days #14 tab Acetaminophen Tab [Tylenol] 1,000 mg PO Q6HR tab Continue Dextroamphetamine/Amphetamine [Adderall 20 mg Tablet] 20 mg PO DAILY lisinopriL [Zestril] 10 mg PO BID Levothyroxine Sodium [Tirosint] 112 mcg PO QAM Discontinued Omeprazole [PriLOSEC] 20 mg PO AC-BRKFST Discharge Medication List Dextroamphetamine/Amphetamine [Adderall 20 mg Tablet] 20 mg PO DAILY 03/08/22 [History] Levothyroxine Sodium [Tirosint] 112 mcg PO QAM 03/08/22 [History] lisinopriL [Zestril] 10 mg PO BID 03/08/22 [History] Acetaminophen Tab [Tylenol] 1,000 mg PO Q6HR tab 04/05/22 [Rx] Pantoprazole [Protonix] 40 mg PO AC-BRKFST 14 Days #14 tab 04/05/22 [Rx] Follow up Appointment(s)/Referral(s): Raúl Persaud DO [Primary Care Provider] - 1-2 Days Ladarius Putnam MD [STAFF PHYSICIAN] - 1 Week Ambulatory/Diagnostic Orders: Basic Metabolic Panel [LAB.AMB] Time Frame: 3 Days, Location: None Selected Complete Blood Count w/diff [LAB.AMB] Time Frame: 3 Days, Location: None Selected Activity/Diet/Wound Care/Special Instructions: No lifting over 10 pounds Shower daily. No soaking or tub baths for 2 weeks Very light activity until you are reevaluated at your follow up appointment with your surgeon Continue full liquid diet until seen by surgeon Discharge Disposition: HOME SELF-CARE
[2022-04-05 13:27] VITALS: BP 155/75; PULSE 63; RESP 22; TEMP 98.2
== END 2022-04-05 14:43 | disposition home or self-care (01) | DRG 331 ==
LOC: 2ORMAIN 08:03 → 4SSUR 13:16
PROVIDERS: ADMIT Surgery; ATTEND Surgery
PROC: 0DNW0ZZ Release Peritoneum, Open Approach (ICD-10-PCS; 2022-04-02)
PROC: 0DBN0ZZ Excision of Sigmoid Colon, Open Approach (ICD-10-PCS; principal; 2022-04-02 09:40)
DX: K57.33 Diverticulitis of large intestine without perforation or abscess with bleeding (principal); F90.9 Attention-deficit hyperactivity disorder, unspecified type; E03.9 Hypothyroidism, unspecified; K66.0 Peritoneal adhesions (postprocedural) (postinfection); I12.9 Hypertensive chronic kidney disease with stage 1 through stage 4 chronic kidney disease, or unspecified chronic kidney disease; N18.30 Chronic kidney disease, stage 3 unspecified; Z79.890 Hormone replacement therapy; K21.9 Gastro-esophageal reflux disease without esophagitis; L98.9 Disorder of the skin and subcutaneous tissue, unspecified; E87.5 Hyperkalemia; Z86.73 Personal history of transient ischemic attack (TIA), and cerebral infarction without residual deficits; E78.5 Hyperlipidemia, unspecified; J45.909 Unspecified asthma, uncomplicated; Z79.899 Other long term (current) drug therapy; Z90.710 Acquired absence of both cervix and uterus; Z96.651 Presence of right artificial knee joint; Z88.5 Allergy status to narcotic agent; Z91.012 Allergy to eggs; Z88.8 Allergy status to other drugs, medicaments and biological substances; Z91.011 Allergy to milk products; Z86.16 Personal history of COVID-19; Z91.010 Allergy to peanuts; Z91.02 Food additives allergy status
CPT/HCPCS: 80048; 85025; 86850; 86900; 86901; 88307; 94760

== ENCOUNTER → 2022-04-25 | Outpatient (CLI) | payer MEDICARE ==
--- NOTE | 2022-04-26 09:18 | MM ---
Reason for Exam: Screening (asymptomatic). Last mammogram was performed 1 year(s) and 1 month(s) ago. Patient History: Menarche at age 10. First Full-Term at age 25. Left ovary removed at age 34. Right ovary removed at age 34. Hysterectomy at age 34. Postmenopausal. Estrogen for 22 years from age 34 until age 56. 1991, Bilateral Reduction. Core Biopsy on the Left side. Core Biopsy on the Left side. Excisional Biopsy on the Right side. 05/02/1998, Benign Excisional Biopsy on the left side. Risk Values: Lennie 5 year model risk: 3.1%. NCI Lifetime model risk: 10.8%. Prior Study Comparison: 03/25/2019 Bilateral Screening Mammogram, [facility]. 03/31/2020 Bilateral Screening Mammogram, [facility]. 04/03/2021 Bilateral Screening Mammogram, [facility]. Tissue Density: The breast tissue is almost entirely fat. Findings: Analyzed By CAD. There is no suspicious group of microcalcifications or new suspicious mass in either breast. Overall Assessment: Negative, BI-RAD 1 Management: Screening Mammogram of both breasts in 1 year. A clinical breast exam by your physician is recommended on an annual basis and results should be correlated with mammographic findings. Electronically signed and approved by: Anuj Chino DO
== END | disposition home or self-care (01) ==
LOC: RADMAMWWP 09:03
PROVIDERS: ATTEND Family Medicine
DX: Z12.31 Encounter for screening mammogram for malignant neoplasm of breast (principal); Z78.0 Asymptomatic menopausal state
CPT/HCPCS: 77063; 77067

== ENCOUNTER → 2023-11-09 | Outpatient (CLI) | payer MEDICARE | END | disposition home or self-care (01) | LOC: LABWHC1 09:44 | PROVIDERS: ATTEND Otolaryngology | DX: J30.89 Other allergic rhinitis (principal) | CPT/HCPCS: 36415 ==